=== PATIENT | male | born 1950 | race Caucasian/White ===

== ENCOUNTER → 2017-12-10 10:03 | Outpatient (CLI) | payer MEDICARE, SELFPAY ==
[2017-12-10 10:16] LABS: Basophils # 0.1 K/mm3 (0-0.2); Basophils % 1.2 % (0.1-2.0); Eosinophils # 0.3 K/mm3 (0.0-0.4); Eosinophils % 3.9 % (0.1-12.0); Hematocrit 48.2 % (42.0-52.0); Lymphocytes # 1.5 K/mm3 (0.7-4.5); Lymphocytes % 21.3 K/mm3 (10-50); Mean Corpuscular HGB Conc 33.3 g/dL (31.8-35.4); Mean Corpuscular Hemoglobin 30.7 pg (27.0-31.2); Mean Corpuscular Volume 92.2 fl (80-94); Mean Platelet Volume 8.4 fl (7.4-10.4); Monocytes # 0.4 K/mm3 (0.1-1.0); Monocytes % 5.6 % (1.7-9.3); Neutrophils # 4.8 K/mm3 (1.8-7.8); Neutrophils % 67.9 % (37.0-80.0); Platelet Count 172 K/mm3 (142-424); Red Blood Count 5.22 M/mm3 (4.60-6.20); Red Cell Distribution Width 13.5 % (11.5-17.5); White Blood Count 7.1 K/mm3 (4.8-10.8)
[2017-12-10 11:09] LABS: Alanine Aminotransferase 37 U/L (12-78); Albumin Level 3.6 gm/dL (3.4-5.0); Albumin/Globulin Ratio 1.2 (1.1-1.8); Alkaline Phosphatase 129 U/L (46-116); Anion Gap 12.3 mEq/L (5-15); Aspartate Amino Transferase 18 U/L (15-37); Bilirubin,Total 0.5 mg/dL (0.2-1.0); Blood Urea Nitrogen 15 mg/dL (7-18); Calcium 8.4 mg/dL (8.5-10.1); Carbon Dioxide 29 mmol/L (21.0-32.0); Chloride 108 mmol/L (98-107); Chol/HDL Ratio 5.1 (1-3.5); Cholesterol 241 mg/dL (140-200); Creatinine,Serum 0.95 mg/dL (0.70-1.30); Estimated Glomerular Filt Rate 79 ml/min (>60); GFR (African American) 95 ML/MIN (>60); Globulin 2.9 gm/dl (1.3-3.2); Glucose 102 mg/dL (74-106); HDL Cholesterol 47 mg/dL (27-67); LDL Cholesterol 140 mg/dL (0-130); Potassium 4.3 mmoL/L (3.5-5.1); Sodium 145 mmol/L (136-145); Thyroid Stimulating Hormone 2.51 uIU/ml (0.358-3.740); Total Protein,Serum 6.5 gm/dL (6.4-8.2); Triglycerides 268 mg/dL (30-200); VLDL Cholesterol 54 mg/dL (0-40)
== END ==
PROVIDERS: PCP Internal Medicine Adolescent Medicine; Visit Provider Internal Medicine Adolescent Medicine
DX: K31.84 Gastroparesis (principal); E78.5 Hyperlipidemia, unspecified; I51.9 Heart disease, unspecified
CPT/HCPCS: 36415; 80053; 80061; 84443; 85025

== ENCOUNTER → 2018-02-12 11:13 | Outpatient (CLI) | payer MEDICARE, SELFPAY ==
--- NOTE | 2018-02-12 11:23 | NM_ITS ---
History and Indications: Hypertension, hyperlipidemia, shortness of breath and fatigue Procedure: Patient received a 0.4 mg of Lexiscan, resting heart rate was 74 beats per resting blood pressure 149/80, with Lexiscan maximum heart rate achieved was 114 bpm which is less than 85% of the maximum predicted heart rate and a blood pressure response to 96/53. With Lexiscan patient complained of nausea and lightheadedness. Requiring intravenous Aminophyllin to reverse the symptoms. Electrocardiogram: Resting echocardiogram showed sinus rhythm, with Lexiscan there is less than 1.[address] segment depression noted from the baseline EKG. The EKG portion of the Lexiscan Myoview is nondiagnostic. Cardiac stress and resting SPECT images: Cardiac stress and rest SPECT images were obtained using technetium 99 Myoview 29.5 mCi at stress and 10.1 mCi at rest. Gated SPECT further analysis of segmental wall motion and calculation of the ejection fraction also done. Cardiac stress and rest images show uniform myocardial activity without any segmental perfusion abnormality, computer derived ejection fraction is over 65% with no obvious regional wall motion abnormality, right ventricle is normal size and contractility. Conclusion: 1. The EKG portion of the Lexiscan Myoview is nondiagnostic. 2. No obvious scintigraphic evidence of reversible ischemia seen, computer derived ejection fraction is over 65% with no obvious regional wall motion abnormality, right ventricle are normal size and contractility. 3. Normal Lexiscan Myoview study.
== END ==
PROVIDERS: Family Provider Internal Medicine Adolescent Medicine; PCP Internal Medicine Adolescent Medicine; Visit Provider Internal Medicine Adolescent Medicine
DX: I20.8 Other forms of angina pectoris (principal)
CPT/HCPCS: 78452; 93017; A9502; J2785

== ENCOUNTER → 2018-04-07 08:20 | Outpatient (CLI) | payer MEDICARE, SELFPAY ==
[2018-04-07 08:39] LABS: Basophils # 0.1 K/mm3 (0-0.2); Basophils % 0.9 % (0.1-2.0); Eosinophils # 0.2 K/mm3 (0.0-0.4); Eosinophils % 3.1 % (0.1-12.0); Hematocrit 39.4 % (42.0-52.0); Hemoglobin 15.5 g/dL (14.1-18.0); Lymphocytes # 1.6 K/mm3 (0.7-4.5); Lymphocytes % 24.5 K/mm3 (10-50); Mean Corpuscular HGB Conc 39.3 g/dL (31.8-35.4); Mean Corpuscular Hemoglobin 36.4 pg (27.0-31.2); Mean Corpuscular Volume 92.7 fl (80-94); Mean Platelet Volume 8.2 fl (7.4-10.4); Monocytes # 0.4 K/mm3 (0.1-1.0); Monocytes % 6.5 % (1.7-9.3); Neutrophils # 4.3 K/mm3 (1.8-7.8); Platelet Count 165 K/mm3 (142-424); Red Blood Count 4.25 M/mm3 (4.60-6.20); Red Cell Distribution Width 13.4 % (11.5-17.5); White Blood Count 6.7 K/mm3 (4.8-10.8)
[2018-04-07 09:54] LABS: Alanine Aminotransferase 26 U/L (12-78); Albumin Level 3.4 gm/dL (3.4-5.0); Albumin/Globulin Ratio 1.2 (1.1-1.8); Alkaline Phosphatase 111 U/L (46-116); Anion Gap 10.2 mEq/L (5-15); Aspartate Amino Transferase 16 U/L (15-37); Bilirubin,Total 0.4 mg/dL (0.2-1.0); Blood Urea Nitrogen 16 mg/dL (7-18); Calcium 8.6 mg/dL (8.5-10.1); Carbon Dioxide 27 mmol/L (21.0-32.0); Chloride 108 mmol/L (98-107); Creatinine,Serum 0.89 mg/dL (0.70-1.30); Estimated Glomerular Filt Rate 85 ml/min (>60); GFR (African American) 103 ML/MIN (>60); Globulin 2.8 gm/dl (1.3-3.2); Glucose 110 mg/dL (74-106); Potassium 4.2 mmoL/L (3.5-5.1); Sodium 141 mmol/L (136-145); Thyroid Stimulating Hormone 2.45 uIU/ml (0.358-3.740); Total Protein,Serum 6.2 gm/dL (6.4-8.2)
[2018-04-09 06:28] LABS: Vitamin B12 449 pg/mL (232-1245); Vitamin D 25 Hydroxy 35.8 ng/mL (30.0-100.0)
== END ==
PROVIDERS: Visit Provider Internal Medicine Adolescent Medicine
DX: R53.81 Other malaise (principal)
CPT/HCPCS: 36415; 80053; 82607; 82652; 84443; 85025

== ENCOUNTER → 2018-07-23 09:14 | Outpatient (CLI) | payer MEDICARE, SELFPAY ==
[2018-07-23 09:55] LABS: Basophils # 0.1 K/mm3 (0-0.2); Basophils % 1.2 % (0.1-2.0); Eosinophils # 0.2 K/mm3 (0.0-0.4); Hematocrit 46.9 % (42.0-52.0); Hemoglobin 15.4 g/dL (14.1-18.0); Lymphocytes # 1.7 K/mm3 (0.7-4.5); Lymphocytes % 24.8 K/mm3 (10-50); Mean Corpuscular HGB Conc 32.9 g/dL (31.8-35.4); Mean Corpuscular Hemoglobin 30.8 pg (27.0-31.2); Mean Corpuscular Volume 93.5 fl (80-94); Mean Platelet Volume 7.7 fl (7.4-10.4); Monocytes # 0.4 K/mm3 (0.1-1.0); Monocytes % 6.3 % (1.7-9.3); Neutrophils # 4.4 K/mm3 (1.8-7.8); Neutrophils % 64.8 % (37.0-80.0); Platelet Count 194 K/mm3 (142-424); Red Blood Count 5.02 M/mm3 (4.60-6.20); Red Cell Distribution Width 13.9 % (11.5-17.5); White Blood Count 6.8 K/mm3 (4.8-10.8)
[2018-07-23 11:12] LABS: Alanine Aminotransferase 35 U/L (12-78); Albumin Level 3.5 gm/dL (3.4-5.0); Albumin/Globulin Ratio 1.2 (1.1-1.8); Alkaline Phosphatase 134 U/L (46-116); Anion Gap 13.6 mEq/L (5-15); Aspartate Amino Transferase 10 U/L (15-37); Bilirubin,Total 0.5 mg/dL (0.2-1.0); Blood Urea Nitrogen 12 mg/dL (7-18); Calcium 8.4 mg/dL (8.5-10.1); Carbon Dioxide 25 mmol/L (21.0-32.0); Chloride 110 mmol/L (98-107); Creatinine,Serum 0.95 mg/dL (0.70-1.30); Estimated Glomerular Filt Rate 78 ml/min (>60); GFR (African American) 95 ML/MIN (>60); Glucose 108 mg/dL (74-106); Magnesium 1.9 mg/dL (1.4-2.2); Potassium 4.6 mmoL/L (3.5-5.1); Sodium 144 mmol/L (136-145); Thyroid Stimulating Hormone 2.44 uIU/ml (0.358-3.740); Total Protein,Serum 6.5 gm/dL (6.4-8.2)
== END ==
PROVIDERS: PCP Internal Medicine Adolescent Medicine; Visit Provider Internal Medicine Adolescent Medicine
DX: I51.9 Heart disease, unspecified (principal); I51.7 Cardiomegaly
CPT/HCPCS: 36415; 80053; 83735; 84443; 85025

== ENCOUNTER 2018-08-25 10:28 | Outpatient (RCR) | payer MEDICARE, SELFPAY | END 2018-11-12 16:40 | disposition home or self-care (01) | LOC: PT 10:28 | PROVIDERS: Visit Provider Internal Medicine | DX: I25.10 Atherosclerotic heart disease of native coronary artery without angina pectoris (principal) | CPT/HCPCS: 93798 ==

== ENCOUNTER → 2018-09-15 08:20 | Outpatient (CLI) | payer MEDICARE, SELFPAY ==
[2018-09-15 09:33] LABS: Alanine Aminotransferase 29 U/L (12-78); Albumin Level 3.5 gm/dL (3.4-5.0); Alkaline Phosphatase 153 U/L (46-116); Anion Gap 12.4 mEq/L (5-15); Aspartate Amino Transferase 14 U/L (15-37); Bilirubin,Direct 0.2 mg/dL (0.0-0.2); Bilirubin,Indirect 0.3 mg/dL (0.0-0.9); Bilirubin,Total 0.5 mg/dL (0.2-1.0); Blood Urea Nitrogen 19 mg/dL (7-18); Calcium 8.5 mg/dL (8.5-10.1); Carbon Dioxide 29 mmol/L (21.0-32.0); Chloride 107 mmol/L (98-107); Chol/HDL Ratio 3.7 (1-3.5); Cholesterol 161 mg/dL (140-200); Creatinine,Serum 0.96 mg/dL (0.70-1.30); Estimated Glomerular Filt Rate 77 ml/min (>60); GFR (African American) 94 ML/MIN (>60); Glucose 107 mg/dL (74-106); HDL Cholesterol 43 mg/dL (27-67); LDL Cholesterol 87 mg/dL (0-130); Potassium 4.4 mmoL/L (3.5-5.1); Sodium 144 mmol/L (136-145); Total Protein,Serum 6.7 gm/dL (6.4-8.2); Triglycerides 153 mg/dL (30-200); VLDL Cholesterol 31 mg/dL (0-40)
== END ==
PROVIDERS: Visit Provider Internal Medicine Cardiovascular Disease
DX: E78.2 Mixed hyperlipidemia (principal); H93.13 Tinnitus, bilateral; I11.9 Hypertensive heart disease without heart failure; I25.118 Atherosclerotic heart disease of native coronary artery with other forms of angina pectoris; R06.09 Other forms of dyspnea; Z87.891 Personal history of nicotine dependence; Z79.899 Other long term (current) drug therapy
CPT/HCPCS: 36415; 80048; 80061; 80076

== ENCOUNTER → 2018-11-26 10:40 | Outpatient (CLI) | payer MEDICARE, SELFPAY ==
[2018-11-26 13:36] LABS: Anion Gap 14.1 mEq/L (5-15); Blood Urea Nitrogen 17 mg/dL (7-18); Calcium 9.3 mg/dL (8.5-10.1); Carbon Dioxide 27 mmol/L (21.0-32.0); Chloride 105 mmol/L (98-107); Creatinine,Serum 1.03 mg/dL (0.70-1.30); Estimated Glomerular Filt Rate 71 ml/min (>60); GFR (African American) 86 ML/MIN (>60); Glucose 123 mg/dL (74-106); Potassium 4.1 mmoL/L (3.5-5.1); Sodium 142 mmol/L (136-145); Thyroid Stimulating Hormone 2.59 uIU/ml (0.358-3.740)
== END ==
PROVIDERS: Visit Provider Internal Medicine Cardiovascular Disease
DX: E78.2 Mixed hyperlipidemia (principal); I11.9 Hypertensive heart disease without heart failure; I25.118 Atherosclerotic heart disease of native coronary artery with other forms of angina pectoris; R06.09 Other forms of dyspnea; T73 Effects of other deprivation; Z87.891 Personal history of nicotine dependence; Z95.5 Presence of coronary angioplasty implant and graft
CPT/HCPCS: 36415; 80048; 83880; 84439; 84443

== ENCOUNTER → 2018-12-04 07:01 | Outpatient (CLI) | payer MEDICARE, SELFPAY ==
--- NOTE | 2018-12-04 07:04 | NM_ITS ---
History and Indications: Coronary artery disease, hypertension, hyperlipidemia, shortness of breath, palpitations and fatigue Procedure: Patient received 0.4 mg of intravenous Lexiscan, resting heart rate was 73 bpm resting blood pressure 160/82, with Lexiscan maximum heart rate achieved was 106 bpm which is less than 85% of the maximum predicted heart rate and blood pressure was 106/59. With Lexiscan patient complained of chest pain or shortness of breath. Electrocardiogram: Resting electrocardiogram showed sinus rhythm, with Lexiscan there is less than 1.[address] segment depression. The EKG portion of the Lexiscan Myoview is nondiagnostic. Cardiac stress and resting SPECT images: Cardiac stress and rest SPECT images were obtained using technetium 99 Myoview 31.4 mCi stress and 10.5 mCi at rest. Gated SPECT further analysis of segmental wall motion and calculation of ejection fraction also done. Cardiac stress and rest SPECT images show decreased tracer activity in the inferolateral wall which improves on the resting images suggestive of reversible ischemia. Computer derived ejection fraction is over 65% with no regional wall motion abnormality. Right ventricle is normal size and contractility. Conclusion: 1. The EKG portion of the Lexiscan Myoview is nondiagnostic. 2. Scintigraphic evidence of mild reversible ischemia involving the inferolateral wall, computer derived ejection fraction is over 65% with regional wall motion abnormality, right ventricle is normal size and contractility. 3. Abnormal Lexiscan Myoview study.
--- NOTE | 2018-12-04 10:06 | HMH.ITSHM ---
Current Home Medications as stated by this patient Umer Trent or sales representative health insurance. []ASPIRN METOPROLOL OMEPRAZOLE ATORVASTATIN TAMSULOSIN DOXYCYCLINE FUROSEMIDE CLOPIDOGREL
== END ==
PROVIDERS: PCP Internal Medicine Adolescent Medicine; Visit Provider Internal Medicine Cardiovascular Disease
DX: E78.2 Mixed hyperlipidemia (principal); I11.9 Hypertensive heart disease without heart failure; I25.118 Atherosclerotic heart disease of native coronary artery with other forms of angina pectoris; R06.09 Other forms of dyspnea; T73 Effects of other deprivation; Z87.891 Personal history of nicotine dependence; Z95.5 Presence of coronary angioplasty implant and graft
CPT/HCPCS: 78452; 93017; A9502; J2785

== ENCOUNTER → 2018-12-18 12:01 | Outpatient (CLI) | payer MEDICARE, SELFPAY ==
[2018-12-18 14:07] LABS: Anion Gap 15.9 mEq/L (5-15); Blood Urea Nitrogen 24 mg/dL (7-18); Calcium 9.1 mg/dL (8.5-10.1); Carbon Dioxide 25 mmol/L (21.0-32.0); Chloride 104 mmol/L (98-107); Creatinine,Serum 1.34 mg/dL (0.70-1.30); Estimated Glomerular Filt Rate 53 ml/min (>60); GFR (African American) 64 ML/MIN (>60); Glucose 139 mg/dL (74-106); Potassium 3.9 mmoL/L (3.5-5.1); Sodium 141 mmol/L (136-145)
== END ==
PROVIDERS: Visit Provider Internal Medicine Cardiovascular Disease
DX: E78.5 Hyperlipidemia, unspecified (principal); I11.9 Hypertensive heart disease without heart failure; I25.10 Atherosclerotic heart disease of native coronary artery without angina pectoris; R00.2 Palpitations; R06.09 Other forms of dyspnea; R07.89 Other chest pain; R53.83 Other fatigue; R94.39 Abnormal result of other cardiovascular function study; Z87.891 Personal history of nicotine dependence; Z95.5 Presence of coronary angioplasty implant and graft
CPT/HCPCS: 36415; 80048

== ENCOUNTER → 2019-01-26 14:00 | Outpatient (CLI) | payer MEDICARE, SELFPAY ==
--- NOTE | 2019-01-26 14:01 | CI_ITS ---
Cerebrovascular Exam Indications: 785.9 Bruit. IMPRESSIONS 1. The bilateral vertebral arteries are patent with normal antegrade flow. 2. Study suggests less than 20% stenosis involving the right internal carotid artery and the left internal carotid artery. History: Coronary artery disease. Risk factors: Hypertension. Hyperlipidemia. Carotid duplex study. Complete study and Doppler flow study including spectral analysis, color and dodge scale imaging. Location: Vascular laboratory. Patient status: Outpatient. Tables: Arterial flow: + +--------+--------+ Location V sys V ed + +--------+--------+ Right CCA - proximal 103cm/s 16.5cm/s + +--------+--------+ Right CCA - distal 71.5cm/s 14.1cm/s + +--------+--------+ Right ECA 125cm/s -------- + +--------+--------+ Right ICA - proximal 78.6cm/s 24.4cm/s + +--------+--------+ Right ICA - mid 86.4cm/s 26.7cm/s + +--------+--------+ Right ICA - distal 99.8cm/s 31.4cm/s + +--------+--------+ Right vertebral 39.3cm/s -------- + +--------+--------+ Left CCA - proximal 81.7cm/s 14.9cm/s + +--------+--------+ Left CCA - distal 77.8cm/s 22cm/s + +--------+--------+ Left ECA 102cm/s -------- + +--------+--------+ Left ICA - proximal 81.7cm/s 20.4cm/s + +--------+--------+ Left ICA - mid 99.8cm/s 33cm/s + +--------+--------+ Left ICA - distal 102cm/s 34.6cm/s + +--------+--------+ Left vertebral 41.6cm/s -------- + +--------+--------+ Velocity ratios: + + + + + + Right, V sys Right, V ed Left, V sys Left, V ed + + + + + + Max ICA/dist CCA 1.4 2.23 1.31 1.57 + + + + + + (Report amended ) Electronically signed by: Trino Toscano [id number]
== END ==
PROVIDERS: PCP Internal Medicine Adolescent Medicine; Visit Provider Internal Medicine Cardiovascular Disease
DX: R09.89 Other specified symptoms and signs involving the circulatory and respiratory systems; E78.5 Hyperlipidemia, unspecified; H93.19 Tinnitus, unspecified ear; I11.9 Hypertensive heart disease without heart failure; I25.10 Atherosclerotic heart disease of native coronary artery without angina pectoris; R53.83 Other fatigue; Z87.891 Personal history of nicotine dependence; Z95.5 Presence of coronary angioplasty implant and graft
CPT/HCPCS: 93880

== ENCOUNTER → 2019-04-05 15:52 | Outpatient (CLI) | payer MEDICARE, SELFPAY ==
--- NOTE | 2019-04-07 14:23 | PC.NURSE ---
PATIENT REGISTERED FOR HOME SLEEP TEST - BROUGHT EQUIPMENT BACK ON 04/06/19 AND STATED HE COULD NOT COMPLETE TEST - MADE HIS HEAD HURT. NO CHARGE FOR TEST.
== END ==
PROVIDERS: PCP Internal Medicine Adolescent Medicine; Visit Provider Internal Medicine Cardiovascular Disease
DX: G47.9 Sleep disorder, unspecified (principal); R40.0 Somnolence

== ENCOUNTER → 2019-04-06 12:31 | Outpatient (CLI) | payer MEDICARE, SELFPAY | PROVIDERS: Visit Provider Urology | DX: Z12.5 Encounter for screening for malignant neoplasm of prostate (principal) | CPT/HCPCS: 36415; G0103 ==

== ENCOUNTER → 2019-04-24 08:20 | Outpatient (CLI) | payer MEDICARE, SELFPAY ==
[2019-04-24 09:18] LABS: Basophils # 0.1 K/mm3 (0-0.2); Basophils % 0.8 % (0.1-2.0); Eosinophils # 0.2 K/mm3 (0.0-0.4); Eosinophils % 2.5 % (0.1-12.0); Hematocrit 44.7 % (42.0-52.0); Hemoglobin 14.3 g/dL (14.1-18.0); Lymphocytes # 1.4 K/mm3 (0.7-4.5); Lymphocytes % 19.4 % (10-50); Mean Corpuscular HGB Conc 31.9 g/dL (31.8-35.4); Mean Corpuscular Hemoglobin 29.3 pg (27.0-31.2); Mean Corpuscular Volume 91.8 fl (80-94); Monocytes # 0.5 K/mm3 (0.1-1.0); Monocytes % 6.8 % (1.7-9.3); Neutrophils # 4.9 K/mm3 (1.8-7.8); Neutrophils % 70.5 % (37.0-80.0); Platelet Count 200 K/mm3 (142-424); Red Blood Count 4.87 M/mm3 (4.60-6.20); White Blood Count 6.9 K/mm3 (4.8-10.8)
[2019-04-24 09:57] LABS: Hemoglobin A1C 5.9 % (0.0-7.0)
[2019-04-24 10:51] LABS: Alanine Aminotransferase 29 U/L (12-78); Albumin Level 3.1 gm/dL (3.4-5.0); Albumin/Globulin Ratio 1.1 (1.1-1.8); Alkaline Phosphatase 160 U/L (46-116); Anion Gap 13.2 mEq/L (5-15); Aspartate Amino Transferase 16 U/L (15-37); Bilirubin,Total 0.5 mg/dL (0.2-1.0); Blood Urea Nitrogen 14 mg/dL (7-18); Calcium 8.1 mg/dL (8.5-10.1); Carbon Dioxide 27 mmol/L (21.0-32.0); Chloride 108 mmol/L (98-107); Creatinine,Serum 0.98 mg/dL (0.70-1.30); Estimated Glomerular Filt Rate 76 ml/min (>60); Free Thyroxine Index 2.7 ug/dL (5.93-13.13); GFR (African American) 91 ML/MIN (>60); Globulin 2.8 gm/dl (1.3-3.2); Glucose 92 mg/dL (74-106); Potassium 4.2 mmoL/L (3.5-5.1); Sodium 144 mmol/L (136-145); T4 (Thyroxine) 9.1 ug/dl (4.7-13.3); Thyroid Stimulating Hormone 2.23 uIU/ml (0.358-3.740); Total Protein,Serum 5.9 gm/dL (6.4-8.2); Triiodothryronine (T3) Uptake 30 % (31-39)
[2019-04-25 21:44] LABS: Rapid Plasma Reagin Ab Titer Non Reactive (NonRea<1:1); Vitamin B12 381 pg/mL (232-1245); Vitamin D 25 Hydroxy 26.4 ng/mL (30.0-100.0)
[2019-04-27 23:09] LABS: Methylmalonic Acid 252 nmol/L (0-378)
== END ==
PROVIDERS: Visit Provider Internal Medicine Adolescent Medicine
DX: G60.3 Idiopathic progressive neuropathy (principal); E55.9 Vitamin D deficiency, unspecified; E03.9 Hypothyroidism, unspecified; Z79.899 Other long term (current) drug therapy
CPT/HCPCS: 36415; 80053; 82131; 82607; 82652; 83036; 84436; 84443; 84479; 85025; 86592

== ENCOUNTER → 2019-06-21 20:16 | Outpatient (CLI) | payer MEDICARE, SELFPAY | PROVIDERS: PCP Internal Medicine Adolescent Medicine; Visit Provider Internal Medicine Cardiovascular Disease | DX: G47.33 Obstructive sleep apnea (adult) (pediatric) (principal); I10 Essential (primary) hypertension; R40.0 Somnolence | CPT/HCPCS: 95810 ==

== ENCOUNTER → 2019-08-02 13:29 | Outpatient (CLI) | payer MEDICARE, SELFPAY ==
--- NOTE | 2019-08-02 13:30 | CA_ITS ---
APPROVED REPORT EXAM: Comprehensive 2D, Doppler, and color-flow Echocardiogram Legal Consultant: Ruby Naidu CRT Ht: 6 ft 1 in Wt: 211lbs BSA: 2.20 BP: 148/83 mmHg Indications: Shortness of Breath, CAD, Hypertension/HDD 2D Dimensions LVOT 2.00 cm (M/F) 1.5-2.5 M-Mode Dimensions RVDd 2.90 cm (0.9-2.6) LA Diam 2.90 cm (1.9-4.0) LVDd 4.70 cm (3.5-5.7) Ao Diam 3.90 cm (2.0-3.7) LVDs 2.50 cm (3.5-5.7) AV Cusp 2.10 cm (1.5-2.6) IVSd 1.30 cm (0.6-1.1) PWd 1.10 cm (0.6-1.1) EF (Teich) 78.10% FS 46.80% EDV (Teich) 102.00 mL ESV (Teich) 22.30 mL LV Diastology E/A Ratio 1.00 MED E' 4.87 (< 7 cm/sec) E'/MED E' Ratio 17.20 (>14) LAT E' 7.02 (<10 cm/sec) E/LAT E' Ratio 12.00 (>14) Aortic Valve AoV Peak William. 86.30 (50-130 cm/s) AI PHT 420.00 ms AO Peak GR. 3.00 mmHg Mitral Valve MV E Max William. 83.90 (40-130 cm/s) MV A Velocity 85.40 (40-130 cm/s) E/A Ratio 1.00 Pulmonary Valve DC End VMAX 133.00 cm/s PA Accel Time 123.00 (>120 msec) Tricuspid Valve TR P. Velocity 311.00 cm/s RAP Estimate 10.00 mmHg RVSP 49.00 mmHg Left Ventricle Left atrium is mildly enlarged, left ventricle is normal size, mild concentric left ventricular hypertrophy, visually estimated ejection fraction 55% with no regional wall motion abnormality, endocardial surfaces are poorly visualized, grade 1 diastolic dysfunction seen with tissue Doppler evidence of raise left atrial pressure. Right Ventricle Right atrium and right ventricular mildly enlarged with normal contractility. Aortic Valve Aortic valve is thickened and calcified leaflet continue to display good mobility, there is no aortic stenosis, there is mild aortic insufficiency. Mitral Valve Mitral valve leaflets are minimally thickened, there is no mitral stenosis, there is mild mitral regurgitation. Tricuspid Valve Tricuspid valve is grossly normal, there is mild tricuspid regurgitation. Tricuspid regurgitation jet velocity is inadequate for calculation of the right ventricular systolic pressure. Pulmonic Valve Pulmonic valve is poorly visualized. Great Vessels Aortic root is normal size. Pericardium No significant pericardial effusion noted. Conclusion 1. Mild biatrial enlargement, normal left ventricular size, mild concentric left ventricular hypertrophy, visually estimated ejection fraction 55% with no regional wall motion abnormality, grade 1 diastolic dysfunction seen with tissue Doppler evidence of raise left atrial pressure. 2. Mildly enlarged right ventricle with normal contractility. 3. Mild aortic, mild mitral and tricuspid regurgitation. 4. No significant pericardial effusion noted. Electronically signed by : Sampson Clements, 08/05/2019 16:33:21
== END ==
PROVIDERS: PCP Internal Medicine Adolescent Medicine; Visit Provider Internal Medicine Cardiovascular Disease
DX: R60.0 Localized edema; E78.2 Mixed hyperlipidemia; I11.9 Hypertensive heart disease without heart failure; I25.118 Atherosclerotic heart disease of native coronary artery with other forms of angina pectoris; I65.29 Occlusion and stenosis of unspecified carotid artery; R06.09 Other forms of dyspnea; R09.89 Other specified symptoms and signs involving the circulatory and respiratory systems; T73 Effects of other deprivation; Z87.891 Personal history of nicotine dependence; Z95.5 Presence of coronary angioplasty implant and graft
CPT/HCPCS: 93306

== ENCOUNTER → 2019-08-06 10:52 | Outpatient (CLI) | payer MEDICARE, SELFPAY ==
[2019-08-06 14:00] LABS: Anion Gap 11.1 mEq/L (5-15); Blood Urea Nitrogen 15 mg/dL (7-18); Calcium 8.7 mg/dL (8.5-10.1); Carbon Dioxide 30 mmol/L (21.0-32.0); Chloride 106 mmol/L (98-107); Creatinine,Serum 1.16 mg/dL (0.70-1.30); Estimated Glomerular Filt Rate 62 ml/min (>60); GFR (African American) 75 ML/MIN (>60); Glucose 138 mg/dL (74-106); Potassium 4.1 mmoL/L (3.5-5.1); Sodium 143 mmol/L (136-145)
== END ==
PROVIDERS: Visit Provider Internal Medicine Cardiovascular Disease
DX: E78.2 Mixed hyperlipidemia (principal); I11.9 Hypertensive heart disease without heart failure; I25.118 Atherosclerotic heart disease of native coronary artery with other forms of angina pectoris; I65.29 Occlusion and stenosis of unspecified carotid artery; R06.09 Other forms of dyspnea; R09.89 Other specified symptoms and signs involving the circulatory and respiratory systems; R60.0 Localized edema; T73 Effects of other deprivation; Z87.891 Personal history of nicotine dependence; Z95.5 Presence of coronary angioplasty implant and graft
CPT/HCPCS: 36415; 80048; 83880

== ENCOUNTER → 2019-08-09 09:43 | Outpatient (CLI) | payer MEDICARE, SELFPAY ==
[2019-08-09 10:18] LABS: Basophils # 0.1 K/mm3 (0-0.2); Basophils % 0.9 % (0.1-2.0); Eosinophils # 0.1 K/mm3 (0.0-0.4); Hematocrit 47.1 % (42.0-52.0); Hemoglobin 14.8 g/dL (14.1-18.0); Lymphocytes % 14.1 % (10-50); Mean Corpuscular HGB Conc 31.4 g/dL (31.8-35.4); Mean Corpuscular Hemoglobin 30.4 pg (27.0-31.2); Mean Corpuscular Volume 96.9 fl (80-94); Mean Platelet Volume 8.2 fl (7.4-10.4); Monocytes # 0.4 K/mm3 (0.1-1.0); Monocytes % 5.8 % (1.7-9.3); Neutrophils # 5.5 K/mm3 (1.8-7.8); Neutrophils % 77.2 % (37.0-80.0); Platelet Count 201 K/mm3 (142-424); Red Blood Count 4.86 M/mm3 (4.60-6.20); Red Cell Distribution Width 15.3 % (11.5-17.5); White Blood Count 7.2 K/mm3 (4.8-10.8)
[2019-08-09 11:32] LABS: Hemoglobin A1C 5.6 % (0.0-7.0)
[2019-08-09 12:15] LABS: Alanine Aminotransferase 27 U/L (12-78); Albumin Level 3.5 gm/dL (3.4-5.0); Albumin/Globulin Ratio 1.1 (1.1-1.8); Alkaline Phosphatase 168 U/L (46-116); Anion Gap 12.4 mEq/L (5-15); Aspartate Amino Transferase 17 U/L (15-37); Bilirubin,Total 0.5 mg/dL (0.2-1.0); Blood Urea Nitrogen 14 mg/dL (7-18); Calcium 8.6 mg/dL (8.5-10.1); Carbon Dioxide 30 mmol/L (21.0-32.0); Chloride 107 mmol/L (98-107); Chol/HDL Ratio 3.4 (1-3.5); Cholesterol 165 mg/dL (140-200); Creatinine,Serum 1.02 mg/dL (0.70-1.30); Estimated Glomerular Filt Rate 72 ml/min (>60); Free Thyroxine Index 2.6 ug/dL (5.93-13.13); GFR (African American) 87 ML/MIN (>60); Globulin 3.1 gm/dl (1.3-3.2); Glucose 127 mg/dL (74-106); HDL Cholesterol 49 mg/dL (27-67); LDL Cholesterol 86 mg/dL (0-130); Potassium 4.4 mmoL/L (3.5-5.1); Sodium 145 mmol/L (136-145); T4 (Thyroxine) 9.4 ug/dl (4.7-13.3); Thyroid Stimulating Hormone 2.34 uIU/ml (0.358-3.740); Total Protein,Serum 6.6 gm/dL (6.4-8.2); Triglycerides 150 mg/dL (30-200); Triiodothryronine (T3) Uptake 28 % (31-39); VLDL Cholesterol 30 mg/dL (0-40)
[2019-08-10 07:17] LABS: Vitamin B12 658 pg/mL (232-1245)
== END ==
PROVIDERS: Visit Provider Internal Medicine Adolescent Medicine
DX: E78.5 Hyperlipidemia, unspecified (principal); I50.20 Unspecified systolic (congestive) heart failure; G60.3 Idiopathic progressive neuropathy
CPT/HCPCS: 36415; 80053; 80061; 82607; 82652; 83036; 84436; 84443; 84479; 85025

== ENCOUNTER → 2019-08-19 08:48 | Outpatient (CLI) | payer MEDICARE, SELFPAY ==
--- NOTE | 2019-08-19 08:54 | CA_ITS ---
APPROVED REPORT Transport Manager: Irish Urbina RVT Study Quality: Good Indications: malignant htn Risk Factors Hypertension Hyperlipidemia Renal Artery Doppler Origin (R) 154.0/ cm/sec Proximal (R) 139.0/ cm/sec Mid (R) 101.9/ cm/sec Distal (R) 115.6/ cm/sec Renal Aorta Ratio (R) 0.92 Segmental A. (R) / cm/sec RI: 0.75 Segmental A. Sup (R) 29.3/7.3 cm/sec Segmental A. Mid (R) 35.9/9.4 cm/sec Segmental A. Inf (R) 28.6/7.8 cm/sec Origin (L) 126.2/ cm/sec Proximal (L) 88.6/ cm/sec Mid (L) 60.8/ cm/sec Distal (L) 86.0/ cm/sec Renal Aorta Ratio (L) 0.75 Segmental A. (L) / cm/sec RI: 0.75 Segmental A. Sup (L) 55.1/13.8 cm/sec Segmental A. Mid (L) 51.3/14.4 cm/sec Segmental A. Inf (L) 44.2/11.8 cm/sec Renal Measurements Kidney Size (R) 11.3x7.6 cm Cortical Thickness (R) 1.3 cm Kidney Size (L) 11.8x6.0 cm Cortical Thickness (L) 1.7 cm Findings Normal bilateral renal artery ultrasound. 1.5 cm cyst seen upper pole left kidney. Conclusion Normal bilateral renal artery ultrasound. 1.5 cm cyst seen upper pole left kidney. Electronically signed by : Trino Toscano MD 08/19/2019 19:11:35
== END ==
PROVIDERS: PCP Internal Medicine Adolescent Medicine; Visit Provider Nurse Practitioner Family
DX: I10 Essential (primary) hypertension (principal)
CPT/HCPCS: 93976

== ENCOUNTER → 2019-08-25 12:49 | Outpatient (CLI) | payer MEDICARE, SELFPAY ==
--- NOTE | 2019-08-25 12:52 | US_ITS ---
APPROVED REPORT Exam Type: Ankle to Brachial Index Farmworker Poultry: Ruby Naidu CRT Indications Claudication: Bilaterally Rest Pain: Bilaterally Risk Factors CAD Hyperlipidemia Pressures/Indices Right Indices Left Indices Brachial 153.00 mmHg Brachial 151.00 mmHg Low Thigh 182.00 mmHg 1.19 Low Thigh 186.00 mmHg 1.22 Calf 186.00 mmHg 1.22 Calf 196.00 mmHg 1.28 Ankle(PT) 202.00 mmHg 1.32 Ankle(PT) 195.00 mmHg 1.27 Ankle(DP) 174.00 mmHg 1.14 Ankle(DP) 180.00 mmHg 1.18 Digit 105.00 mmHg 0.69 Digit 124.00 mmHg 0.81 Conclusion RT KATHERINE=1.3 LT KATHERINE=1.3 RT TBI=0.7 LT TBI=0.9 Normal pulses Normal waveforms Normal appearing resting noninvasive lower extremity arterial study. Electronically signed by : Trino Toscano MD 08/27/2019 17:34:18
== END ==
PROVIDERS: PCP Internal Medicine Adolescent Medicine; Visit Provider Nurse Practitioner Family
DX: I70.213 Atherosclerosis of native arteries of extremities with intermittent claudication, bilateral legs (principal)
CPT/HCPCS: 93923

== ENCOUNTER → 2019-11-23 14:25 | Outpatient (CLI) | payer MEDICARE, SELFPAY ==
[2019-11-23 15:38] LABS: Anion Gap 15.4 mEq/L (5-15); Blood Urea Nitrogen 15 mg/dL (7-18); Calcium 8.4 mg/dL (8.5-10.1); Carbon Dioxide 26 mmol/L (21.0-32.0); Chloride 107 mmol/L (98-107); Creatinine,Serum 1.08 mg/dL (0.70-1.30); Estimated Glomerular Filt Rate 67 ml/min (>60); GFR (African American) 82 ML/MIN (>60); Glucose 76 mg/dL (74-106); Potassium 4.4 mmoL/L (3.5-5.1); Sodium 144 mmol/L (136-145)
== END ==
PROVIDERS: PCP Internal Medicine Adolescent Medicine; Visit Provider Nurse Practitioner Family
DX: I11.9 Hypertensive heart disease without heart failure (principal); I25.10 Atherosclerotic heart disease of native coronary artery without angina pectoris; R60.9 Edema, unspecified
CPT/HCPCS: 36415; 80048

== ENCOUNTER → 2020-03-24 11:09 | Outpatient (CLI) | payer MEDICARE, SELFPAY ==
[2020-03-24 12:03] LABS: Chloride 103 mmol/L (98-107); Potassium 4.1 mmoL/L (3.5-5.1); Sodium 137 mmol/L (136-145)
[2020-03-24 12:05] LABS: Blood Urea Nitrogen 16 mg/dl (9-20); Estimated Glomerular Filt Rate 83 ml/min (>60); GFR (African American) 101 ML/MIN (>60)
[2020-03-24 12:06] LABS: Anion Gap 11.1 mEq/L (5-15); Calcium 9.2 mg/dl (8.4-10.2); Carbon Dioxide 27 mmol/L (22.0-30.0); Creatine Kinase 41 U/L (55-170); Glucose 213 mg/dl (74-100)
[2020-03-24 12:15] LABS: CKMB Relative Index 0.7 U/L (0-4.0); Creatine Kinase MB 0.3 ng/ml (0.0-2.03)
[2020-03-24 12:20] LABS: Troponin I < 0.01 ng/ml (0.00-0.034)
[2020-03-24 12:24] LABS: Basophils # 0.1 K/mm3 (0-0.2); Basophils % 0.7 % (0.1-2.0); Eosinophils # 0.1 K/mm3 (0.0-0.4); Eosinophils % 0.5 % (0.1-12.0); Hematocrit 45.2 % (42.0-52.0); Hemoglobin 14.5 g/dL (14.1-18.0); Lymphocytes # 1.1 K/mm3 (0.7-4.5); Lymphocytes % 11.3 % (10-50); Mean Corpuscular HGB Conc 32.1 g/dL (31.8-35.4); Mean Corpuscular Hemoglobin 31.1 pg (27.0-31.2); Mean Corpuscular Volume 96.8 fl (80-94); Mean Platelet Volume 8.3 fl (7.4-10.4); Monocytes # 0.4 K/mm3 (0.1-1.0); Monocytes % 4.2 % (1.7-9.3); Neutrophils # 8.3 K/mm3 (1.8-7.8); Neutrophils % 83.3 % (37.0-80.0); Platelet Count 209 K/mm3 (142-424); Red Blood Count 4.67 M/mm3 (4.60-6.20); Red Cell Distribution Width 14.2 % (11.5-17.5); White Blood Count 9.9 K/mm3 (4.8-10.8)
[2020-03-24 12:37] LABS: Thyroid Stimulating Hormone 1.63 uIU/mL (0.465-4.68)
== END ==
PROVIDERS: Visit Provider Internal Medicine Adolescent Medicine
DX: M79.602 Pain in left arm (principal); M54.2 Cervicalgia; Z79.899 Other long term (current) drug therapy
CPT/HCPCS: 36415; 80048; 82550; 82553; 84443; 84484; 85025

== ENCOUNTER → 2020-03-29 08:13 | Outpatient (CLI) | payer MEDICARE, SELFPAY ==
[2020-03-29 09:48] LABS: Hemoglobin A1C 5.3 % (4.0-6.0)
[2020-03-29 09:53] LABS: Chloride 104 mmol/L (98-107); Potassium 4.3 mmoL/L (3.5-5.1); Sodium 138 mmol/L (136-145)
[2020-03-29 09:56] LABS: Anion Gap 11.3 mEq/L (5-15); Blood Urea Nitrogen 15 mg/dl (9-20); Carbon Dioxide 27 mmol/L (22.0-30.0); Estimated Glomerular Filt Rate 83 ml/min (>60); GFR (African American) 101 ML/MIN (>60)
[2020-03-29 09:57] LABS: Glucose 99 mg/dl (74-100)
== END ==
PROVIDERS: Visit Provider Internal Medicine Adolescent Medicine
DX: R73.09 Other abnormal glucose (principal)
CPT/HCPCS: 36415; 80048; 83036

== ENCOUNTER → 2020-04-06 06:17 | Outpatient (CLI) | payer MEDICARE, SELFPAY ==
--- NOTE | 2020-04-06 06:18 | CA_ITS ---
APPROVED REPORT Exam: Pharmacologic Technologist: Lenore Lim, Ht: 6 ft 0 in Wt: 210 lbs BSA: 2.18 m2 Indications: SOA Medical History Medical History: HTN, Hyperlipidemia Medications: Furosemide (LASIX),,,,, Aspirin,,,,, Metoprolol,,,,, Gabapentin,,,,, Losartan,,,,, Atorvastatin,,,,, Buspirone,,,,, Ropinirole,,,,, TAMSULOSIN,,,,, CloPIdogrel,,,,, FluTICASONE,,,,, SpirOnolactone,,,,, Cardiac Risk Factors: HTN, Hyperlipidemia Stress Test Details Test: LEXISCAN Reason for pharmacologic stress test: physical limitation. Reversal agent Aminophyline 100.0 mg, given intravenously for . HR Resting HR: 60 bpm Max Heart Rate (APMHR): 149 bpm Max HR Achieved: 97 bpm Target HR (85% APMHR): 126 bpm % of APMHR: 65 BP Resting BP: 152/60 mmHg Max BP: 167/76 mmHg ECG Clinical Exercise duration: 04:49 min Highest Stage Achieved: Exercise capacity: 1.0 METs Stress ECG Conclusion positive for SOA, Malaise, stomach cramps Aminophylline 100mg slow IV given resulting in resolved symptoms negative for arrhythmias, ST changes unremarkable Lexiscan stress / images reported separately Electronically signed by : Sampson Clements, 04/06/2020 10:45:01
--- NOTE | 2020-04-06 06:18 | NM_ITS ---
APPROVED REPORT Exam: Nuclear Stress Test Indication: short of breath..palpitations..fatigue Patient Location: Outpatient Stress Tech: Lenore Lim VT Tech:Jessica Lozoya KIKAEleanor RT(R)(N) Ht: 6 ft 0 in Wt: 210 lbs HR: 51 bpm BP: 152/60 mmHg BSA: 2.18 m2 History: short of breath..palpitations..fatigue Procedure: Patient received a 0.4 mg of intravenous Lexiscan, resting heart rate 51 bpm, resting blood pressure 152/60 mmHg, with Lexiscan maximum heart rate achived was 97 bpm which is Less than 85 % of the maximum predicted heart rate and blood pressure was 167/76 mmHg. With Lexiscan, patient denied any complaint of chest pain. Electrocardiogram Resting electrocardiogram showed sinus rhythm, with Lexiscan there is less than 1.[address] segment depression noted from the baseline EKG. The EKG portion of the Lexiscan Myoview is nondiagnostic. Cardiac Stress and Resting SPECT Images: Cardiac Stress and Resting SPECT images were obtained using technetium 99m Myoview 32.3 mCi stress and 10.07 mCi at rest. Gated SPECT for analysis of segmental wall motion and calculation of the ejection fraction also done. Cardiac stress and rest SPECT images show reversible ischemia involving the apex, anterolateral and lateral wall, computer derived ejection fraction is 65% with mild posterolateral wall hypokinesis. Right ventricle is normal size and contractility. Conclusion: 1. The EKG portion of the Lexiscan Myoview is nondiagnostic. 2. Scintigraphic evidence of mild reversible ischemia involving the apical wall anterolateral and lateral wall. Computer derived ejection fraction is 65% with segmental wall motion abnormality described above, right ventricle is normal size and contractility. 3. Abnormal Lexiscan Myoview study. Electronically signed by : Sampson Clements, 04/06/2020 10:48:24
--- NOTE | 2020-04-06 08:11 | HMH.ITSHM ---
Current Home Medications as stated by this patient Umer Trent or enrollment eligibility representative. [] metoprolol losartan busirone spironolactone atorvastatin clopidogrel furosemide asp mirtazapine
== END ==
LOC: RAD 06:18
PROVIDERS: PCP Internal Medicine Adolescent Medicine; Visit Provider Urology
DX: E78.2 Mixed hyperlipidemia (principal); I11.9 Hypertensive heart disease without heart failure; I25.10 Atherosclerotic heart disease of native coronary artery without angina pectoris; I65.23 Occlusion and stenosis of bilateral carotid arteries; R06.00 Dyspnea, unspecified; Z95.5 Presence of coronary angioplasty implant and graft; M54.2 Cervicalgia; R20.0 Anesthesia of skin
CPT/HCPCS: 78452; 93017; A9502; J2785

== ENCOUNTER 2020-04-19 08:29 | Day surgery (SDC) | payer MEDICARE, SELFPAY ==
[2020-04-19] VITALS (20 sets, daily range): BP systolic 103–179; BP diastolic 53–85; PULSE 57–81; RESP 15–16; TEMP 36.4; O2SAT 90–96; BMI 27.9
[2020-04-19 09:13] LABS: Basophils # 0.1 K/mm3 (0-0.2); Basophils % 0.9 % (0.1-2.0); Eosinophils # 0.2 K/mm3 (0.0-0.4); Eosinophils % 2.3 % (0.1-12.0); Hematocrit 45.2 % (42.0-52.0); Hemoglobin 15.3 g/dL (14.1-18.0); Lymphocytes # 1.5 K/mm3 (0.7-4.5); Lymphocytes % 17.8 % (10-50); Mean Corpuscular Hemoglobin 32.6 pg (27.0-31.2); Mean Corpuscular Volume 95.8 fl (80-94); Mean Platelet Volume 8.5 fl (7.4-10.4); Monocytes # 0.5 K/mm3 (0.1-1.0); Monocytes % 6.1 % (1.7-9.3); Neutrophils % 72.9 % (37.0-80.0); Platelet Count 221 K/mm3 (142-424); Red Blood Count 4.71 M/mm3 (4.60-6.20); Red Cell Distribution Width 14.1 % (11.5-17.5); White Blood Count 8.2 K/mm3 (4.8-10.8)
[2020-04-19 09:21] LABS: Chloride 107 mmol/L (98-107)
[2020-04-19 09:22] LABS: Sodium 139 mmol/L (136-145)
[2020-04-19 09:25] LABS: Blood Urea Nitrogen 17 mg/dl (9-20); Calcium 8.9 mg/dl (8.4-10.2); Carbon Dioxide 25 mmol/L (22.0-30.0); Creatinine Clearance Estimated 90 mL/min (50-200); Estimated Glomerular Filt Rate 83 ml/min (>60); GFR (African American) 101 ML/MIN (>60); Glucose 111 mg/dl (74-100)
== END 2020-04-19 14:04 | disposition home or self-care (01) ==
LOC: CATHLAB 08:31
PROVIDERS: PCP Internal Medicine Adolescent Medicine; Visit Provider Internal Medicine
DX: I25.10 Atherosclerotic heart disease of native coronary artery without angina pectoris (principal); I11.0 Hypertensive heart disease with heart failure; I50.32 Chronic diastolic (congestive) heart failure; Z95.5 Presence of coronary angioplasty implant and graft; E78.5 Hyperlipidemia, unspecified; I65.23 Occlusion and stenosis of bilateral carotid arteries
CPT/HCPCS: 80048; 85025; 93458; 99152; C1725; C1769; J1644; Q9967

== ENCOUNTER → 2020-06-01 08:15 | Outpatient (CLI) | payer MEDICARE, SELFPAY ==
[2020-06-01 08:47] LABS: Basophils # 0.1 K/mm3 (0-0.2); Basophils % 1.7 % (0.1-2.0); Eosinophils # 0.3 K/mm3 (0.0-0.4); Hematocrit 45.7 % (42.0-52.0); Hemoglobin 15.2 g/dL (14.1-18.0); Lymphocytes # 1.7 K/mm3 (0.7-4.5); Lymphocytes % 26.2 % (10-50); Mean Corpuscular HGB Conc 33.2 g/dL (31.8-35.4); Mean Corpuscular Hemoglobin 31.8 pg (27.0-31.2); Mean Corpuscular Volume 95.7 fl (80-94); Mean Platelet Volume 7.8 fl (7.4-10.4); Monocytes # 0.4 K/mm3 (0.1-1.0); Monocytes % 6.1 % (1.7-9.3); Platelet Count 202 K/mm3 (142-424); Red Blood Count 4.78 M/mm3 (4.60-6.20); Red Cell Distribution Width 13.9 % (11.5-17.5); White Blood Count 6.5 K/mm3 (4.8-10.8)
[2020-06-01 09:07] LABS: Chloride 104 mmol/L (98-107); Potassium 4.4 mmoL/L (3.5-5.1); Sodium 139 mmol/L (136-145)
[2020-06-01 09:09] LABS: Alanine Aminotransferase 29 U/L (12-78); Alkaline Phosphatase 129 U/L (38-126); Aspartate Amino Transferase 25 U/L (17-59); Bilirubin,Total 0.7 mg/dl (0.2-1.3); Blood Urea Nitrogen 15 mg/dl (9-20); Estimated Glomerular Filt Rate 74 ml/min (>60); GFR (African American) 89 ML/MIN (>60)
[2020-06-01 09:10] LABS: Albumin Level 3.7 g/dl (3.5-5.0); Albumin/Globulin Ratio 1.5 (1.1-1.8); Anion Gap 12.4 mEq/L (5-15); Calcium 8.9 mg/dl (8.4-10.2); Carbon Dioxide 27 mmol/L (22.0-30.0); Chol/HDL Ratio 3.4 (1-3.5); Cholesterol 140 mg/dl (140-200); Globulin 2.5 g/dL (1.3-3.2); Glucose 108 mg/dl (74-100); HDL Cholesterol 41 mg/dl (40-60); Total Protein,Serum 6.2 g/dl (6.3-8.2); Triglycerides 180 mg/dl (30-150); VLDL Cholesterol 36 mg/dL (0-40)
[2020-06-01 09:21] LABS: Direct LDL Cholesterol 78.96 mg/dL (100-129)
[2020-06-01 09:41] LABS: Thyroid Stimulating Hormone 3.17 uIU/mL (0.465-4.68)
== END ==
PROVIDERS: Visit Provider Internal Medicine Adolescent Medicine
DX: I25.10 Atherosclerotic heart disease of native coronary artery without angina pectoris (principal); I10 Essential (primary) hypertension; I51.9 Heart disease, unspecified
CPT/HCPCS: 36415; 80053; 80061; 84443; 85025

== ENCOUNTER → 2020-09-05 08:28 | Outpatient (CLI) | payer MEDICARE, SELFPAY ==
[2020-09-05 08:58] LABS: Basophils # 0.1 K/mm3 (0-0.2); Basophils % 1.5 % (0.1-2.0); Eosinophils # 0.1 K/mm3 (0.0-0.4); Eosinophils % 2.1 % (0.1-12.0); Hematocrit 51.7 % (42.0-52.0); Hemoglobin 17.1 g/dL (14.1-18.0); Lymphocytes % 29.4 % (10-50); Mean Corpuscular Hemoglobin 31.3 pg (27.0-31.2); Mean Corpuscular Volume 94.7 fl (80-94); Mean Platelet Volume 7.9 fl (7.4-10.4); Monocytes # 0.4 K/mm3 (0.1-1.0); Monocytes % 6.5 % (1.7-9.3); Neutrophils % 60.5 % (37.0-80.0); Platelet Count 225 K/mm3 (142-424); Red Blood Count 5.46 M/mm3 (4.60-6.20); Red Cell Distribution Width 14.5 % (11.5-17.5); White Blood Count 6.6 K/mm3 (4.8-10.8)
[2020-09-05 09:39] LABS: Chloride 106 mmol/L (98-107); Hemoglobin A1C 5.4 % (4.0-6.0); Potassium 4.9 mmoL/L (3.5-5.1); Sodium 142 mmol/L (136-145)
[2020-09-05 09:41] LABS: Alanine Aminotransferase 27 U/L (12-78); Aspartate Amino Transferase 25 U/L (17-59); Bilirubin,Total 0.6 mg/dl (0.2-1.3); Blood Urea Nitrogen 15 mg/dl (9-20); Estimated Glomerular Filt Rate 66 ml/min (>60); GFR (African American) 80 ML/MIN (>60)
[2020-09-05 09:42] LABS: Albumin/Globulin Ratio 1.5 (1.1-1.8); Alkaline Phosphatase 143 U/L (38-126); Anion Gap 11.9 mEq/L (5-15); Calcium 9.4 mg/dl (8.4-10.2); Carbon Dioxide 29 mmol/L (22.0-30.0); Chol/HDL Ratio 3.6 (1-3.5); Cholesterol 159 mg/dl (140-200); Globulin 2.6 g/dL (1.3-3.2); Glucose 110 mg/dl (74-100); HDL Cholesterol 44 mg/dl (40-60); Total Protein,Serum 6.6 g/dl (6.3-8.2); Triglycerides 176 mg/dl (30-150); VLDL Cholesterol 35 mg/dL (0-40)
[2020-09-05 09:53] LABS: Direct LDL Cholesterol 89.35 mg/dL (100-129)
== END ==
PROVIDERS: Visit Provider Internal Medicine Adolescent Medicine
DX: I25.10 Atherosclerotic heart disease of native coronary artery without angina pectoris (principal); E78.5 Hyperlipidemia, unspecified; E11.9 Type 2 diabetes mellitus without complications
CPT/HCPCS: 36415; 80053; 80061; 83036; 85025

== ENCOUNTER → 2020-12-19 15:09 | Outpatient (CLI) | payer MEDICARE, SELFPAY ==
[2020-12-19 15:43] LABS: Hemoglobin A1C 5.2 % (4.0-6.0)
[2020-12-19 16:21] LABS: Anion Gap 11.4 mEq/L (5-15); Blood Urea Nitrogen 19 mg/dl (9-20); Calcium 9.5 mg/dl (8.4-10.2); Carbon Dioxide 26 mmol/L (22.0-30.0); Chloride 107 mmol/L (98-107); Estimated Glomerular Filt Rate 60 ml/min (>60); GFR (African American) 72 ML/MIN (>60); Glucose 108 mg/dl (74-100); Potassium 4.4 mmoL/L (3.5-5.1); Sodium 140 mmol/L (136-145)
== END ==
PROVIDERS: Visit Provider Internal Medicine Adolescent Medicine
DX: E11.9 Type 2 diabetes mellitus without complications (principal)
CPT/HCPCS: 36415; 80048; 83036

== ENCOUNTER → 2021-03-26 13:17 | Outpatient (CLI) | payer MEDICARE, SELFPAY ==
[2021-03-26 15:49] LABS: Anion Gap 10.4 mEq/L (5-15); Blood Urea Nitrogen 23 mg/dl (9-20); Calcium 9.1 mg/dl (8.4-10.2); Carbon Dioxide 31 mmol/L (22.0-30.0); Chloride 103 mmol/L (98-107); Estimated Glomerular Filt Rate 73 ml/min (>60); GFR (African American) 89 ML/MIN (>60); Glucose 62 mg/dl (74-100); Potassium 5.4 mmoL/L (3.5-5.1); Sodium 139 mmol/L (136-145)
== END ==
PROVIDERS: Visit Provider Internal Medicine Adolescent Medicine
DX: E78.5 Hyperlipidemia, unspecified (principal); K59.09 Other constipation
CPT/HCPCS: 36415; 80048

== ENCOUNTER 2021-04-07 11:59 | Emergency (ER) | payer MEDICARE, SELFPAY ==
[2021-04-07 11:59] VITALS: BP 149/66; PULSE 56; RESP 16; TEMP 36.6; O2SAT 96; BMI 27.1
[2021-04-07 12:16] LABS: POC Glucose,Bedside 143 (70-110)
--- NOTE | 2021-04-07 12:17 | XR_ITS ---
PROCEDURE INFORMATION: Exam: XR Chest Exam date and time: 04/07/2021 12:17 PM Age: 70 years old Clinical indication: Shortness of breath; Patient HX: Changed BP medicine, feeling weak and dizzy today; Additional info: Weakness TECHNIQUE: Imaging protocol: XR of the chest. Views: 1 view. COMPARISON: [facility] CT CHEST W/ CONTRAST 10/18/2015 4:25 PM FINDINGS: Lungs: Unremarkable. No consolidation. Pleural spaces: Unremarkable. No pleural effusion. No pneumothorax. Heart/Mediastinum: Unremarkable. No cardiomegaly. Bones/joints: Unremarkable. IMPRESSION: No acute findings.
[2021-04-07 12:30] LABS: Basophils # 0.1 K/mm3 (0-0.2); Basophils % 0.9 % (0.1-2.0); Eosinophils # 0.1 K/mm3 (0.0-0.4); Eosinophils % 1.1 % (0.1-12.0); Hematocrit 49.1 % (42.0-52.0); Hemoglobin 16.6 g/dL (14.1-18.0); Lymphocytes # 1.5 K/mm3 (0.7-4.5); Lymphocytes % 17.1 % (10-50); Mean Corpuscular HGB Conc 33.8 g/dL (31.8-35.4); Mean Corpuscular Hemoglobin 31.1 pg (27.0-31.2); Mean Corpuscular Volume 92.1 fl (80-94); Monocytes # 0.4 K/mm3 (0.1-1.0); Monocytes % 4.5 % (1.7-9.3); Neutrophils # 6.6 K/mm3 (1.8-7.8); Neutrophils % 76.3 % (37.0-80.0); Platelet Count 196 K/mm3 (142-424); Red Blood Count 5.33 M/mm3 (4.60-6.20); Red Cell Distribution Width 14.3 % (11.5-17.5); White Blood Count 8.6 K/mm3 (4.8-10.8)
--- NOTE | 2021-04-07 12:30 | ECG_ITS ---
APPROVED REPORT Exam: Resting ECG HR:49 bpm ECG Measurements Heart Rate 49 AXES PA 172 P 57 QRSd 84 QRS 14 QT 470 T 40 QTc 424 Conclusion Marked sinus bradycardia Old Isolated q in III. Late r wave progression Abnormal ECG Electronically signed by : Abelardo Alford, 04/08/2021 08:51:57
--- NOTE | 2021-04-07 12:32 | HMH.EDGENADL ---
ED Disposition Clinical Impression: Weakness, Dehydration Disposition: Home, Self-Care Condition on Discharge: Good Additional Instructions: Sure to drink plenty of fluids on daily basis. Continue home medications. Medical emergency room for any new symptoms. Follow-up with primary care physician in 2 days. Referrals: Abelardo Alford MD [Primary Care Provider] - - Critical Care Critical Care Time: No Attestation: On 04/07/21, the high probability of a clinically significant, sudden or life threatening deterioration of the following system(s) required my full and direct attention, intervention and personal management. The time I documented below is in addition to time spent performing reported procedures but includes the following listed in this critical care notation. Medical Decision Making - Medical Records MR Comment: Normal sinus rhythm with ventricular rate 49. Nonspecific ST changes. However no acute findings noted. Patient physical exam was completely unremarkable. He received 1 L of IV fluid. His labs were normal. His EKG is normal. - Kiet Inquiry Pt receiving controlled substance: No Vital Signs: 04/07/21 11:59 04/07/21 13:00 04/07/21 13:30 Temperature 98 F Temperature Source Oral Pulse Rate 49 L 46 L Pulse Rate [Radial] 56 L Respiratory Rate 16 18 18 Blood Pressure 128/52 L 133/53 L Blood Pressure [Right Arm] 149/66 H Blood Pressure Mean 86 89 Blood Pressure Mean [Right Arm] 93 Blood Pressure Position [Right Arm] Sitting 02 Sat by Pulse Oximetry 96 95 96 Oxygen Delivery Method Room Air - Lab Data Lab Results 04/07/21 12:08: POC Glucose 143 H 04/07/21 12:18: WBC 8.6, RBC 5.33, Hgb 16.6, Hct 49.1, MCV 92.1, MCH 31.1, MCHC 33.8, RDW 14.3, Plt Count 196, MPV 8.0, Neut % (Auto) 76.3, Lymph % (Auto) 17.1, [place] % (Auto) 4.5, Eos % (Auto) 1.1, Baso % (Auto) 0.9, Neut # (Auto) 6.6, Lymph # (Auto) 1.5, [place] # (Auto) 0.4, Eos # (Auto) 0.1, Baso # (Auto) 0.1 04/07/21 12:18: Sodium 139, Potassium 4.2, Chloride 106, Carbon Dioxide 27, Anion Gap 10.2, BUN 16, Creatinine 1.00, Estimated Creat Clear 86, Estimated GFR 73, Est GFR ( Amer) 89, Glucose 151 H, Calcium 8.8, Total Bilirubin 0.5, AST 22, ALT 21, Alkaline Phosphatase 160 H, Troponin I < 0.01, Total Protein 7.3, Albumin 4.3, Globulin 3.0, Albumin/Globulin Ratio 1.4 Result diagrams: 04/07/21 12:18 04/07/21 12:18 Orders (Tests/Meds): ED MEDICATIONS Discontinued Medications Generic Name Dose Route Start Last Admin Trade Name Freq PRN Reason Stop Dose Admin Sodium Chloride 1,000 mls @ 999 mls/hr 04/07/21 12:30 04/07/21 12:21 Sod Chlor 0.9% 1000ml Bag IV 04/07/21 13:30 999 mls/hr .Q1H1M FARRAH Administration Ondansetron HCl 4 mg 04/07/21 12:23 04/07/21 12:24 Ondansetron 4mg/2ml Vial IV 04/07/21 12:24 4 mg ONCE ONE Administration ORDERS Category Date Time Status Troponin I Q3H Lab 04/07/21 15:30 Ordered Troponin I Q3H Lab 04/07/21 18:30 Ordered General Adult HPI - General Chief complaint: Weakness Stated complaint: dizziness, nausea Time Seen by Provider: 04/07/21 13:32 Mode of Arrival: Ambulatory Limitations: No Limitations Description of Symptoms (Recalled from ER Triage Doc. by RN): TO ED PER PVT CAR WITH C/O FEELING LIGHTHEADED, LEG WEAKNESS, NAUSEA X 1-2 WEEKS. PT STATES HX OF CONSTIPATION USED OTC MAG CITRATE WITH +RESULTS, THEN HAD DIARREHA X SEVERAL DAYS. SEEN BY PCP 1 WEEK AGO FOR SYMPTOMS HAD BLOOD WORK TOLD K+ WAS HIGH AND TO STOP LOSARTAN. SAW CARDIOLOGY 2 DAYS AGO AND TOLD TO RESTART LOSARTAN. PT STATES CONTINUES WITH SYMPTOMS. STATES I THINK I'M DEHYDRATED . BLOOD GLUCOSE 143 - History of Present Illness HPI narrative: Male walked to the emergency room complains of weakness and he thinks that she is dehydrated. According the patient he has severe constipation and he used multiple laxatives when he had good bowel movements with diarrhea that followed that. He
[2021-04-07 12:36] LABS: Chloride 106 mmol/L (98-107); Potassium 4.2 mmoL/L (3.5-5.1); Sodium 139 mmol/L (136-145)
[2021-04-07 12:39] LABS: Alanine Aminotransferase 21 U/L (12-78); Albumin Level 4.3 g/dl (3.5-5.0); Albumin/Globulin Ratio 1.4 (1.1-1.8); Alkaline Phosphatase 160 U/L (38-126); Anion Gap 10.2 mEq/L (5-15); Aspartate Amino Transferase 22 U/L (17-59); Bilirubin,Total 0.5 mg/dl (0.2-1.3); Blood Urea Nitrogen 16 mg/dl (9-20); Calcium 8.8 mg/dl (8.4-10.2); Carbon Dioxide 27 mmol/L (22.0-30.0); Creatinine Clearance Estimated 86 mL/min (50-200); Estimated Glomerular Filt Rate 73 ml/min (>60); GFR (African American) 89 ML/MIN (>60); Glucose 151 mg/dl (74-100); Total Protein,Serum 7.3 g/dl (6.3-8.2)
[2021-04-07 12:54] LABS: Troponin I < 0.01 ng/ml (0.00-0.034)
[2021-04-07 13:00] VITALS: BP 128/52; PULSE 49; RESP 18; O2SAT 95
[2021-04-07 13:30] VITALS: BP 133/53; PULSE 46; RESP 18; O2SAT 96
[2021-04-07 14:11] VITALS: BP 132/88; PULSE 42; RESP 16; TEMP 36.6; O2SAT 98
== END 2021-04-07 14:13 | disposition home or self-care (01) ==
PROVIDERS: Emergency Provider Internal Medicine; PCP Internal Medicine Adolescent Medicine
DX: E86.0 Dehydration (principal); K59.00 Constipation, unspecified; I10 Essential (primary) hypertension; E78.5 Hyperlipidemia, unspecified; K21.9 Gastro-esophageal reflux disease without esophagitis; I25.10 Atherosclerotic heart disease of native coronary artery without angina pectoris; Z79.899 Other long term (current) drug therapy
CPT/HCPCS: 71045; 80053; 82962; 84484; 85025; 93005; 96365; 96375; 99282; J2405

== ENCOUNTER → 2021-04-12 07:33 | Outpatient (CLI) | payer MEDICARE, SELFPAY ==
[2021-04-12 09:32] LABS: Chloride 104 mmol/L (98-107)
[2021-04-12 09:33] LABS: Potassium 4.4 mmoL/L (3.5-5.1); Sodium 141 mmol/L (136-145)
[2021-04-12 09:36] LABS: Anion Gap 14.4 mEq/L (5-15); Blood Urea Nitrogen 18 mg/dl (9-20); Carbon Dioxide 27 mmol/L (22.0-30.0); Estimated Glomerular Filt Rate 83 ml/min (>60); GFR (African American) 100 ML/MIN (>60); Glucose 110 mg/dl (74-100)
== END ==
PROVIDERS: Visit Provider Internal Medicine Cardiovascular Disease
DX: E78.2 Mixed hyperlipidemia (principal); I11.9 Hypertensive heart disease without heart failure; I25.10 Atherosclerotic heart disease of native coronary artery without angina pectoris; I50.89 Other heart failure; I65.23 Occlusion and stenosis of bilateral carotid arteries; R53.83 Other fatigue; R94.31 Abnormal electrocardiogram [ECG] [EKG]; Z95.5 Presence of coronary angioplasty implant and graft
CPT/HCPCS: 36415; 80048

== ENCOUNTER → 2021-04-20 11:12 | Outpatient (CLI) | payer MEDICARE, SELFPAY | LOC: RT 11:15 | PROVIDERS: PCP Internal Medicine Adolescent Medicine; Visit Provider Internal Medicine Cardiovascular Disease | DX: R00.1 Bradycardia, unspecified (principal); R06.00 Dyspnea, unspecified; R60.9 Edema, unspecified | CPT/HCPCS: 93270 ==

== ENCOUNTER → 2021-06-12 08:49 | Outpatient (CLI) | payer MEDICARE, SELFPAY ==
[2021-06-12 09:19] LABS: Basophils # 0.1 K/mm3 (0-0.2); Basophils % 1.3 % (0.1-2.0); Eosinophils # 0.2 K/mm3 (0.0-0.4); Hematocrit 48.8 % (42.0-52.0); Lymphocytes # 1.7 K/mm3 (0.7-4.5); Lymphocytes % 21.6 % (10-50); Mean Corpuscular HGB Conc 32.8 g/dL (31.8-35.4); Mean Corpuscular Hemoglobin 31.2 pg (27.0-31.2); Mean Platelet Volume 8.2 fl (7.4-10.4); Monocytes # 0.5 K/mm3 (0.1-1.0); Monocytes % 6.3 % (1.7-9.3); Neutrophils # 5.5 K/mm3 (1.8-7.8); Neutrophils % 68.8 % (37.0-80.0); Platelet Count 195 K/mm3 (142-424); Red Blood Count 5.14 M/mm3 (4.60-6.20); Red Cell Distribution Width 14.6 % (11.5-17.5); White Blood Count 8.1 K/mm3 (4.8-10.8)
[2021-06-12 10:20] LABS: Alanine Aminotransferase 18 U/L (12-78); Albumin Level 3.8 g/dl (3.5-5.0); Albumin/Globulin Ratio 1.6 (1.1-1.8); Alkaline Phosphatase 135 U/L (38-126); Anion Gap 10.7 mEq/L (5-15); Aspartate Amino Transferase 19 U/L (17-59); Bilirubin,Total 0.6 mg/dl (0.2-1.3); Blood Urea Nitrogen 16 mg/dl (9-20); Calcium 8.7 mg/dl (8.4-10.2); Carbon Dioxide 28 mmol/L (22.0-30.0); Chloride 108 mmol/L (98-107); Estimated Glomerular Filt Rate 95 ml/min (>60); GFR (African American) 115 ML/MIN (>60); Globulin 2.4 g/dL (1.3-3.2); Glucose 110 mg/dl (74-100); Potassium 4.7 mmoL/L (3.5-5.1); Sodium 142 mmol/L (136-145); Total Protein,Serum 6.2 g/dl (6.3-8.2)
[2021-06-12 10:38] LABS: Free Thyroxine Index 2.9 ug/dL (5.93-13.13); T4 (Thyroxine) 10.8 ug/dl (5.53-11.0); Triiodothryronine (T3) Uptake 27 % (23.5-40.5)
[2021-06-12 10:52] LABS: Thyroid Stimulating Hormone 2.77 uIU/mL (0.465-4.68)
== END ==
PROVIDERS: Visit Provider Internal Medicine Adolescent Medicine
DX: R53.81 Other malaise (principal); R53.83 Other fatigue; K21.9 Gastro-esophageal reflux disease without esophagitis
CPT/HCPCS: 36415; 80053; 84436; 84443; 84479; 85025

== ENCOUNTER → 2021-10-03 09:33 | Outpatient (CLI) | payer MEDICARE, SELFPAY ==
--- NOTE | 2021-10-03 09:37 | XR_ITS ---
PROCEDURE: XR HIP RT 2-3V W/PELVIS CLINICAL INDICATION: RT HIP PAIN COMPARISON: CR XR FEMUR RT 2V from 10/03/2021 FINDINGS: Right hip with pelvis: AP view of the pelvis shows mild osteoarthritic changes of both hips. There is minimal flattening of the right femoral head laterally which could be seen with femoral acetabular impingement. Please correlate with patient's clinical parameters. No fracture or dislocation. No lytic or blastic change. Right femur: The mid distal aspect of the right femur are unremarkable. IMPRESSION: Minimal osteoarthritic change of the hips. Minimal flattening of the right femoral head laterally raising the question of femoral acetabular impingement. Please correlate with clinical parameters. Dictated by: Trino Toscano MD 10/03/2021 16:55 Trino Toscano MD in [place] 10/03/2021 16:55
== END ==
LOC: RAD 09:34
PROVIDERS: PCP Internal Medicine Adolescent Medicine; Visit Provider Internal Medicine Adolescent Medicine
DX: M25.551 Pain in right hip (principal); M79.651 Pain in right thigh
CPT/HCPCS: 73502; 73552

== ENCOUNTER → 2021-10-17 10:22 | Outpatient (CLI) | payer MEDICARE, SELFPAY ==
[2021-10-17 10:56] LABS: Basophils # 0.1 K/mm3 (0-0.2); Basophils % 1.5 % (0.1-2.0); Eosinophils # 0.2 K/mm3 (0.0-0.4); Hematocrit 48.9 % (42.0-52.0); Hemoglobin 16.8 g/dL (14.1-18.0); Lymphocytes # 1.6 K/mm3 (0.7-4.5); Lymphocytes % 19.7 % (10-50); Mean Corpuscular HGB Conc 34.3 g/dL (31.8-35.4); Mean Corpuscular Hemoglobin 31.7 pg (27.0-31.2); Mean Corpuscular Volume 92.3 fl (80-94); Mean Platelet Volume 8.3 fl (7.4-10.4); Monocytes # 0.5 K/mm3 (0.1-1.0); Monocytes % 6.4 % (1.7-9.3); Neutrophils # 5.6 K/mm3 (1.8-7.8); Neutrophils % 70.4 % (37.0-80.0); Platelet Count 227 K/mm3 (142-424); Red Blood Count 5.29 M/mm3 (4.60-6.20); Red Cell Distribution Width 14.4 % (11.5-17.5); White Blood Count 7.9 K/mm3 (4.8-10.8)
[2021-10-17 11:58] LABS: Alanine Aminotransferase 33 U/L (12-78); Albumin Level 4.2 g/dl (3.5-5.0); Albumin/Globulin Ratio 1.6 (1.1-1.8); Alkaline Phosphatase 123 U/L (38-126); Anion Gap 11.4 mEq/L (5-15); Aspartate Amino Transferase 31 U/L (17-59); Bilirubin,Total 0.6 mg/dl (0.2-1.3); Blood Urea Nitrogen 19 mg/dl (9-20); Calcium 9.8 mg/dl (8.4-10.2); Carbon Dioxide 29 mmol/L (22.0-30.0); Chloride 106 mmol/L (98-107); Estimated Glomerular Filt Rate 66 ml/min (>60); GFR (African American) 79 ML/MIN (>60); Globulin 2.6 g/dL (1.3-3.2); Glucose 107 mg/dl (74-100); Magnesium 2.1 mg/dl (1.6-2.3); Potassium 5.4 mmoL/L (3.5-5.1); Sodium 141 mmol/L (136-145); Total Protein,Serum 6.8 g/dl (6.3-8.2)
[2021-10-17 12:31] LABS: Thyroid Stimulating Hormone 3.31 uIU/mL (0.465-4.68)
== END ==
PROVIDERS: Visit Provider Internal Medicine Adolescent Medicine
DX: I25.10 Atherosclerotic heart disease of native coronary artery without angina pectoris (principal); E78.5 Hyperlipidemia, unspecified
CPT/HCPCS: 36415; 80053; 83735; 84443; 85025

== ENCOUNTER → 2022-02-15 07:56 | Outpatient (CLI) | payer MEDICARE, SELFPAY ==
[2022-02-15 09:43] LABS: Basophils # 0.1 K/mm3 (0-0.2); Basophils % 1.5 % (0.1-2.0); Eosinophils # 0.2 K/mm3 (0.0-0.4); Eosinophils % 3.1 % (0.1-12.0); Hematocrit 48.3 % (42.0-52.0); Hemoglobin 15.6 g/dL (14.1-18.0); Lymphocytes # 1.6 K/mm3 (0.7-4.5); Mean Corpuscular HGB Conc 32.3 g/dL (31.8-35.4); Mean Corpuscular Hemoglobin 31.2 pg (27.0-31.2); Mean Corpuscular Volume 96.6 fl (80-94); Mean Platelet Volume 8.9 fl (7.4-10.4); Monocytes # 0.4 K/mm3 (0.1-1.0); Monocytes % 7.5 % (1.7-9.3); Neutrophils % 56.9 % (37.0-80.0); Platelet Count 201 K/mm3 (142-424); Red Cell Distribution Width 14.9 % (11.5-17.5); White Blood Count 5.3 K/mm3 (4.8-10.8)
[2022-02-15 10:17] LABS: Alanine Aminotransferase 29 U/L (12-78); Albumin Level 3.7 g/dl (3.5-5.0); Albumin/Globulin Ratio 1.6 (1.1-1.8); Alkaline Phosphatase 125 U/L (38-126); Anion Gap 8.6 mEq/L (5-15); Aspartate Amino Transferase 28 U/L (17-59); Bilirubin,Total 0.6 mg/dl (0.2-1.3); Blood Urea Nitrogen 17 mg/dl (9-20); Calcium 8.7 mg/dl (8.4-10.2); Carbon Dioxide 25 mmol/L (22.0-30.0); Chloride 110 mmol/L (98-107); Chol/HDL Ratio 3.5 (1-3.5); Cholesterol 125 mg/dl (140-200); Estimated Glomerular Filt Rate 73 ml/min (>60); GFR (African American) 89 ML/MIN (>60); Globulin 2.3 g/dL (1.3-3.2); Glucose 121 mg/dl (74-100); HDL Cholesterol 36 mg/dl (40-60); Potassium 4.6 mmoL/L (3.5-5.1); Sodium 139 mmol/L (136-145); Triglycerides 166 mg/dl (30-150); VLDL Cholesterol 33 mg/dL (0-40)
[2022-02-15 10:25] LABS: NT Pro Brain Natriuretic Pep. 221 pg/mL (0-125)
[2022-02-15 10:28] LABS: Direct LDL Cholesterol 56.97 mg/dL (100-129)
[2022-02-15 10:34] LABS: 25-OH Vitamin D, Total 42.1 ng/mL (30-100)
[2022-02-15 10:39] LABS: Free Thyroxine Index 2.6 ug/dL (5.93-13.13); T4 (Thyroxine) 10.4 ug/dl (5.53-11.0); Triiodothryronine (T3) Uptake 25 % (23.5-40.5)
[2022-02-15 11:06] LABS: Vitamin B12 500 pg/mL (239-931)
== END ==
PROVIDERS: Visit Provider Internal Medicine Adolescent Medicine
DX: I25.10 Atherosclerotic heart disease of native coronary artery without angina pectoris (principal); E78.5 Hyperlipidemia, unspecified; E11.9 Type 2 diabetes mellitus without complications; R25.1 Tremor, unspecified; I51.9 Heart disease, unspecified; R06.09 Other forms of dyspnea
CPT/HCPCS: 36415; 80053; 80061; 82306; 82607; 83735; 83880; 84436; 84443; 84479; 85025

== ENCOUNTER 2022-03-01 15:33 | Emergency (ER) | payer MEDICARE, SELFPAY ==
[2022-03-01] VITALS (8 sets, daily range): BP systolic 106–146; BP diastolic 49–84; PULSE 74–90; RESP 16–18; TEMP 36.8; O2SAT 95–97; BMI 29.1
--- NOTE | 2022-03-01 15:42 | ECG_ITS ---
APPROVED REPORT Exam: Resting ECG HR:90 bpm ECG Measurements Heart Rate 90 AXES OR 166 P 67 QRSd 94 QRS 62 QT 359 T 58 QTc 407 Conclusion SINUS RHYTHM LOW QRS VOLTAGE IN PRECORDIAL LEADS [QRS DEFLECTION < 1.0 mV IN CHEST LEADS] Isolated q in iii Electronically signed by : Abelardo Alford MD 03/01/2022 17:02:50
[2022-03-01 16:16] LABS: Basophils # 0.2 K/mm3 (0-0.2); Basophils % 1.6 % (0.1-2.0); Eosinophils # 0.1 K/mm3 (0.0-0.4); Eosinophils % 0.8 % (0.1-12.0); Hemoglobin 17.5 g/dL (14.1-18.0); Lymphocytes # 0.9 K/mm3 (0.7-4.5); Lymphocytes % 7.4 % (10-50); Mean Corpuscular Hemoglobin 31.3 pg (27.0-31.2); Mean Platelet Volume 8.4 fl (7.4-10.4); Monocytes # 0.5 K/mm3 (0.1-1.0); Monocytes % 4.4 % (1.7-9.3); Neutrophils # 10.4 K/mm3 (1.8-7.8); Neutrophils % 85.8 % (37.0-80.0); Platelet Count 236 K/mm3 (142-424); Red Blood Count 5.58 M/mm3 (4.60-6.20); Red Cell Distribution Width 14.9 % (11.5-17.5); White Blood Count 12.2 K/mm3 (4.8-10.8)
[2022-03-01 16:21] LABS: Chloride 105 mmol/L (98-107); Potassium 4.7 mmoL/L (3.5-5.1); Sodium 141 mmol/L (136-145)
[2022-03-01 16:23] LABS: Blood Urea Nitrogen 22 mg/dl (9-20); Creatinine Clearance Estimated 82 mL/min (50-200); Estimated Glomerular Filt Rate 66 ml/min (>60); GFR (African American) 79 ML/MIN (>60)
[2022-03-01 16:24] LABS: Alanine Aminotransferase 44 U/L (12-78); Albumin Level 4.2 g/dl (3.5-5.0); Albumin/Globulin Ratio 1.4 (1.1-1.8); Alkaline Phosphatase 155 U/L (38-126); Anion Gap 12.7 mEq/L (5-15); Aspartate Amino Transferase 44 U/L (17-59); Bilirubin,Total 0.6 mg/dl (0.2-1.3); Calcium 9.2 mg/dl (8.4-10.2); Carbon Dioxide 28 mmol/L (22.0-30.0); Glucose 134 mg/dl (74-100); Lipase 151 U/L (23-300); Total Protein,Serum 7.2 g/dl (6.3-8.2)
[2022-03-01 16:30] LABS: MANUAL DIFFERENTIAL MANUAL DIFFERENTIAL (MANUAL DIFF)
[2022-03-01 16:48] LABS: Troponin I < 0.01 ng/ml (0.00-0.034)
[2022-03-01 17:07] LABS: Lymphocytes % 12 % (10-50); Monocytes % 3 % (2-9); Neutrophils % 85 % (42-76); Platelet Estimate Normal; RBC Morphology Normal; Total Cells Counted 100
--- NOTE | 2022-03-01 17:55 | PC.NURSE ---
Updated pt on POC. Advised him MD was tied up with critical pt at this time. Pt asked for something to drink and a snack. Called dietary and requested food.
--- NOTE | 2022-03-01 18:23 | HMH.EDGENADL ---
ED Disposition Clinical Impression: Gastroenteritis Disposition: Home, Self-Care Condition on Discharge: Good Instructions: DI for Diarrhea and Traveler's Diarrhea -- Adult, DI for Diarrhea and Traveler's Diarrhea -- Child, DI for Nausea -- Adult, DI for Nausea -- Child Additional Instructions: Zofran as directed for nausea, vomiting. Drink plenty fluids stay hydrated. Continue home medication as previously directed. Return with new or concerning symptoms. Prescriptions: Ondansetron [Zofran 4mg ODT] 4 mg SL TIDP PRN 3 Days #12 tab PRN Reason: Nausea And Vomiting Transmission Status: Pending to [facility] Referrals: Abelardo Alford MD [Primary Care Provider] - - Critical Care Critical Care Time: No Attestation: On 03/01/22, the high probability of a clinically significant, sudden or life threatening deterioration of the following system(s) required my full and direct attention, intervention and personal management. The time I documented below is in addition to time spent performing reported procedures but includes the following listed in this critical care notation. Medical Decision Making - Medical Records Medical records reviewed: Yes: I reviewed the patient's medical records. - Kiet Inquiry Pt receiving controlled substance: No Vital Signs: 03/01/22 15:34 03/01/22 16:00 03/01/22 16:37 Temperature 98.3 F Temperature Source Oral Pulse Rate 77 83 Pulse Rate [Right Radial] 86 Respiratory Rate 18 16 16 Blood Pressure 146/71 H 125/64 Blood Pressure [Left Arm] 146/71 H Blood Pressure Mean Blood Pressure Mean [Left Arm] 96 Blood Pressure Source [Left Arm] Automatic Cuff Blood Pressure Position [Left Arm] Sitting 02 Sat by Pulse Oximetry 96 96 95 Oxygen Delivery Method Room Air 03/01/22 17:00 03/01/22 17:30 03/01/22 18:01 Temperature Temperature Source Pulse Rate 74 84 90 Pulse Rate [Right Radial] Respiratory Rate 16 16 Blood Pressure 106/49 L 122/56 L 108/84 L Blood Pressure [Left Arm] Blood Pressure Mean 60 72 85 Blood Pressure Mean [Left Arm] Blood Pressure Source [Left Arm] Blood Pressure Position [Left Arm] 02 Sat by Pulse Oximetry 95 95 96 Oxygen Delivery Method 03/01/22 18:30 Temperature Temperature Source Pulse Rate 90 Pulse Rate [Right Radial] Respiratory Rate 16 Blood Pressure 119/62 Blood Pressure [Left Arm] Blood Pressure Mean 81 Blood Pressure Mean [Left Arm] Blood Pressure Source [Left Arm] Blood Pressure Position [Left Arm] 02 Sat by Pulse Oximetry 96 Oxygen Delivery Method - Lab Data Lab Results 03/01/22 15:45: Troponin I < 0.01 03/01/22 15:45: WBC 12.2 H, RBC 5.58, Hgb 17.5, Hct 53.0 H, MCV 95.0 H, MCH 31.3 H, MCHC 33.0, RDW 14.9, Plt Count 236, MPV 8.4, Neut % (Auto) 85.8 H, Lymph % (Auto) 7.4 L, Day % (Auto) 4.4, Eos % (Auto) 0.8, Baso % (Auto) 1.6, Neut # (Auto) 10.4 H, Lymph # (Auto) 0.9, Day # (Auto) 0.5, Eos # (Auto) 0.1, Baso # (Auto) 0.2, Total Counted 100, Neutrophils % (Manual) 85 H, Lymphocytes % (Manual) 12, Monocytes % (Manual) 3, Platelet Estimate Normal, RBC Morphology Normal 03/01/22 15:45: Sodium 141, Potassium 4.7, Chloride 105, Carbon Dioxide 28, Anion Gap 12.7, BUN 22 H, Creatinine 1.10, Estimated Creat Clear 82, Estimated GFR 66, Est GFR ( Amer) 79, Glucose 134 H, Calcium 9.2, Total Bilirubin 0.6, AST 44, ALT 44, Alkaline Phosphatase 155 H, Total Protein 7.2, Albumin 4.2, Globulin 3.0, Albumin/Globulin Ratio 1.4, Lipase 151 Result diagrams: 03/01/22 15:45 03/01/22 15:45 Orders (Tests/Meds): ED MEDICATIONS Discontinued Medications Generic Name Dose Route Start Last Admin Trade Name Freq PRN Reason Stop Dose Admin Lactated Ringer's 1,000 mls @ 999 mls/hr 03/01/22 16:15 03/01/22 16:15 Lactated Ringer's 1000 Ml Bag IV 03/01/22 17:15 999 mls/hr .Q1H1M FARRAH Administration Ondansetron HCl 4 mg 03/01/22 16:05 03/01/22 16:05 Ondansetron 4mg/2ml Vi
== END 2022-03-01 19:38 | disposition home or self-care (01) ==
LOC: HMH.CTC 15:42 → ER 15:59
PROVIDERS: Emergency Provider Emergency Medicine; PCP Internal Medicine Adolescent Medicine
DX: K52.9 Noninfective gastroenteritis and colitis, unspecified (principal); E11.9 Type 2 diabetes mellitus without complications; K21.9 Gastro-esophageal reflux disease without esophagitis; I10 Essential (primary) hypertension; E78.5 Hyperlipidemia, unspecified
CPT/HCPCS: 80053; 83690; 84484; 85007; 85025; 93005; 96360; 96375; 99284; J2405

== ENCOUNTER → 2022-05-03 14:20 | Outpatient (CLI) | payer MEDICARE, SELFPAY ==
[2022-05-03 15:13] LABS: Basophils # 0.1 K/mm3 (0-0.2); Basophils % 1.1 % (0.1-2.0); Eosinophils # 0.2 K/mm3 (0.0-0.4); Eosinophils % 2.1 % (0.1-12.0); Hematocrit 48.9 % (42.0-52.0); Hemoglobin 15.4 g/dL (14.1-18.0); Lymphocytes # 1.9 K/mm3 (0.7-4.5); Lymphocytes % 21.5 % (10-50); Mean Corpuscular HGB Conc 31.4 g/dL (31.8-35.4); Mean Corpuscular Hemoglobin 30.7 pg (27.0-31.2); Mean Corpuscular Volume 97.8 fl (80-94); Mean Platelet Volume 8.7 fl (7.4-10.4); Monocytes # 0.6 K/mm3 (0.1-1.0); Monocytes % 7.1 % (1.7-9.3); Neutrophils # 6.2 K/mm3 (1.8-7.8); Neutrophils % 68.3 % (37.0-80.0); Platelet Count 202 K/mm3 (142-424); Red Cell Distribution Width 14.6 % (11.5-17.5)
[2022-05-03 16:19] LABS: Chloride 104 mmol/L (98-107); Potassium 4.3 mmoL/L (3.5-5.1); Sodium 137 mmol/L (136-145)
[2022-05-03 16:22] LABS: Anion Gap 10.3 mEq/L (5-15); Blood Urea Nitrogen 15 mg/dl (9-20); Calcium 9.1 mg/dl (8.4-10.2); Carbon Dioxide 27 mmol/L (22.0-30.0); Estimated Glomerular Filt Rate 83 ml/min (>60); GFR (African American) 100 ML/MIN (>60); Glucose 97 mg/dl (74-100)
[2022-05-03 16:31] LABS: NT Pro Brain Natriuretic Pep. 138 pg/mL (0-125)
== END ==
PROVIDERS: PCP Internal Medicine Adolescent Medicine; Visit Provider Internal Medicine Cardiovascular Disease
DX: E78.5 Hyperlipidemia, unspecified (principal); I11.9 Hypertensive heart disease without heart failure; I25.10 Atherosclerotic heart disease of native coronary artery without angina pectoris; I65.29 Occlusion and stenosis of unspecified carotid artery; R06.00 Dyspnea, unspecified; R42 Dizziness and giddiness; R53.1 Weakness; R53.83 Other fatigue
CPT/HCPCS: 36415; 80048; 83880; 85025

== ENCOUNTER → 2022-05-10 14:18 | Outpatient (CLI) | payer MEDICARE, SELFPAY | LOC: RT 14:19 | PROVIDERS: PCP Internal Medicine Adolescent Medicine; Visit Provider Internal Medicine Cardiovascular Disease | DX: E78.5 Hyperlipidemia, unspecified (principal); E86.0 Dehydration; I11.9 Hypertensive heart disease without heart failure; I20.8 Other forms of angina pectoris; R06.00 Dyspnea, unspecified; R42 Dizziness and giddiness; R53.1 Weakness | CPT/HCPCS: 93306 ==

== ENCOUNTER → 2023-07-15 09:03 | Outpatient (CLI) | payer MEDICARE, SELFPAY ==
[2023-07-15 10:16] LABS: Basophils # 0.1 K/mm3 (0-0.2); Basophils % 0.9 % (0.1-2.0); Eosinophils # 0.2 K/mm3 (0.0-0.4); Eosinophils % 2.4 % (0.1-12.0); Hematocrit 52.5 % (42.0-52.0); Hemoglobin 16.6 g/dL (14.1-18.0); Lymphocytes # 1.8 K/mm3 (0.7-4.5); Lymphocytes % 23.4 % (10-50); Mean Corpuscular HGB Conc 31.7 g/dL (31.8-35.4); Mean Corpuscular Hemoglobin 30.1 pg (27.0-31.2); Mean Corpuscular Volume 94.9 fl (80-94); Mean Platelet Volume 8.8 fl (7.4-10.4); Monocytes # 0.4 K/mm3 (0.1-1.0); Monocytes % 5.6 % (1.7-9.3); Neutrophils # 5.3 K/mm3 (1.8-7.8); Neutrophils % 67.7 % (37.0-80.0); Platelet Count 186 K/mm3 (142-424); Red Blood Count 5.53 M/mm3 (4.60-6.20); White Blood Count 7.8 K/mm3 (4.8-10.8)
[2023-07-15 11:12] LABS: Hemoglobin A1C 5.9 % (4.0-6.0)
[2023-07-15 11:50] LABS: Alanine Aminotransferase 31 U/L (12-78); Albumin Level 3.9 g/dl (3.5-5.0); Albumin/Globulin Ratio 1.4 (1.1-1.8); Alkaline Phosphatase 146 U/L (38-126); Anion Gap 13.7 mEq/L (5-15); Aspartate Amino Transferase 34 U/L (17-59); Bilirubin,Total 0.5 mg/dl (0.2-1.3); Blood Urea Nitrogen 18 mg/dl (9-20); Calcium 8.9 mg/dl (8.4-10.2); Carbon Dioxide 25 mmol/L (22.0-30.0); Chloride 107 mmol/L (98-107); Chol/HDL Ratio 3.7 (1-3.5); Cholesterol 144 mg/dl (140-200); Estimated Glomerular Filt Rate 73 ml/min (>60); GFR (African American) 88 ML/MIN (>60); Globulin 2.7 g/dL (1.3-3.2); Glucose 130 mg/dl (74-100); HDL Cholesterol 39 mg/dl (40-60); Potassium 4.7 mmoL/L (3.5-5.1); Sodium 141 mmol/L (136-145); Total Protein,Serum 6.6 g/dl (6.3-8.2); Triglycerides 178 mg/dl (30-150); VLDL Cholesterol 36 mg/dL (0-40)
[2023-07-15 12:01] LABS: Direct LDL Cholesterol 74.03 mg/dL (100-129)
[2023-07-15 12:06] LABS: 25-OH Vitamin D, Total 35.3 ng/mL (30-100)
[2023-07-15 12:39] LABS: Vitamin B12 355 pg/mL (239-931)
== END ==
PROVIDERS: PCP Internal Medicine Adolescent Medicine; Visit Provider Internal Medicine Adolescent Medicine
DX: I25.10 Atherosclerotic heart disease of native coronary artery without angina pectoris (principal); E11.40 Type 2 diabetes mellitus with diabetic neuropathy, unspecified; G60.3 Idiopathic progressive neuropathy; Z68.33 Body mass index [BMI] 33.0-33.9, adult
CPT/HCPCS: 36415; 80053; 80061; 82306; 82607; 83036; 83735; 85025

== ENCOUNTER 2024-02-18 07:57 | Outpatient (CLI) | payer MEDICARE, SELFPAY ==
--- NOTE | 2024-02-18 07:58 | NM_ITS ---
APPROVED REPORT Exam: Nuclear Stress Test Indication: SOB, HTN, CAD, High cholesterol, DM Patient Location: Outpatient Stress Tech: Dominga Luu [place] Tech:Yasmin Moreland, ARRT, RT (R)(N) Ht: 6 ft 0 in Wt: 215 lbs HR: 57 bpm BP: 174/66 mmHg BSA: 2.20 m2 TID: 1.13 History: SOB, HTN, CAD, High cholesterol, DM Procedure: Patient received 0.4 mg of intravenous Lexiscan, resting heart rate 57 bpm, resting blood pressure 174/66 mmHg, with Lexiscan maximum heart rate achieved was 91 bpm which is % of the maximum predicted heart rate and blood pressure was 174/66 mmHg. With Lexiscan, patient denied any complaint of chest pain. Cardiac Stress and Resting SPECT Images: Cardiac Stress and Resting SPECT images were obtained using technetium 99m Myoview 32.5 mCi stress and 10.00 mCi at rest. The patient could not lie on his abdomen. Therefore, prone stress imaging could not be performed. This may affect the diagnostic interpretation of the study findings. Resting and stress imaging in supine positions demonstrate no evidence of fixed or reversible perfusion defects. Gated imaging demonstrates normal global and regional LV systolic function. LVEF is calculated at 55%. Of note, the RV wall appears thickened. Correlation with TTE is recommended. Conclusion: No evidence of fixed or reversible perfusion defects. Gated imaging demonstrates normal global and regional LV systolic function. LVEF is calculated at 55%. Of note, the RV wall appears thickened. Correlation with TTE is recommended. Electronically signed by : Nidia Marx MD 02/19/2024 13:22:09
[2024-02-18] MEDS: ISOTOPE MYOVIEW (PER STUDY) 1 DOSE IV (09:12)
[2024-02-18] MEDS: REGADENOSON 0.4MG/5ML SYRINGE 0.400000000000000022 MG IV (09:12)
[2024-02-18] MEDS: SODIUM CHLORIDE 0.9% 10ML SYR (RAD ONLY) 10 ML IV ×2 (09:12)
--- NOTE | 2024-02-18 09:17 | CA_ITS ---
APPROVED REPORT EXAM: Comprehensive 2D, Doppler, and color-flow Echocardiogram Pipe Organ Technician: RUBI Diaz, RVS Ht: 6 ft 0 in Wt: 221lbs BSA: 2.22 BP: 130/58 mmHg Indications: Angina, Diastolic dysfunction, CAD, HLD Echo Enhancing Agent Comments: Technically limited windows due to patient intolerance to apical touch. 2D Dimensions IVSd 0.80 cm M: 0.6-1.2 LVEF (Visual) 72.00 % PWd 0.95 cm M: 0.6 - 1.2 LA Volume 69.90 mL LVDd 5.39 cm M: 4.2 - 5.9 LA Volume Index 31.49 mL/m2 (M/F) 16-34 LVDs 3.15 cm M: 2.5 - 4.0 EF AP4 59.30 % Left Atrium 2.58 cm M: 3.0 - 4.0 GL Strain -27.0 % M-Mode Dimensions RVDd 2.37 cm (0.9-2.6) LA Diam 3.96 cm (1.9-4.0) LVDd 5.40 cm (3.5-5.7) LVDs 4.74 cm (3.5-5.7) IVSd 1.16 cm (0.6-1.1) PWd 0.88 cm (0.6-1.1) EF (Teich) 50.00% EPSs 0.40 cm FS 25.00% EDV (Teich) 165.20 mL TAPSE 3.26 (<1.7) ESV (Teich) 104.40 mL LV Diastology E Decel Time 183 (160-240 msec) E/A Ratio 0.92 MED A' 11.00 cm/s LAT A' 11.80 cm/s Aortic Valve MELODY Index 1.49 cm2/m2 AoV Peak William. 99.0 (50-130 cm/s) AO Peak GR. 3.90 mmHg AO Mean GR. 2.00 (<5 mmHg) AO VTI 23.9 (18-25 cm) MELODY (VTI) 3.39 (2.5-4.5 cm2) Mitral Valve MV A Velocity 74.0 (40-130 cm/s) E/A Ratio 0.92 Pulmonary Valve PV Peak Velocity 80.0 (50-150 cm/s) UT End VMAX 179.0 cm/s Tricuspid Valve TR P. Velocity 214.00 cm/s RAP Estimate 10.00 mmHg RVSP 28.30 mmHg Left Ventricle The left ventricle is normal size. The left ventricular systolic function is normal. The left ventricular ejection fraction is within the normal range. Proximal septal thickening is noted. There is normal LV segmental wall motion. The left ventricular diastolic function is normal. LVEF is 55%. Right Ventricle Right ventricle is mildly dilated. The right ventricular systolic function is normal. Atria The left atrium size is normal. The right atrium size is normal. The interatrial septum is not well visualized. Aortic Valve The aortic valve is mildly thickened. There is no aortic valvular stenosis. Mild aortic regurgitation. Mitral Valve The mitral valve leaflets are mildly thickened. No evidence of mitral valve stenosis. Mild mitral regurgitation. Tricuspid Valve The tricuspid valve leaflets are thin and pliable. Trace tricuspid regurgitation. There is insufficient TR jet to estimate RVSP. Pulmonic Valve The pulmonary valve is normal in structure. Mild pulmonic regurgitation. Great Vessels The aortic root is normal in size. The ascending aorta is normal in size. The IVC is not well visualized. Pericardium There is no pericardial effusion. Other Information Study Quality: Technically Difficult Conclusion Technically difficult study due to poor accoustic windows and patient's inability to tolerate apical views. Normal biventricular systolic function. Mild RV dilation. Mild AI, mild MR, mild PI. Electronically signed by : Nidia Marx MD 02/22/2024 16:05:39
--- NOTE | 2024-02-18 09:17 | CA_ITS ---
FINAL REPORT TECHNIQUE: Color Doppler, duplex Doppler and dodge scale sonography of the bilateral neck arterial vasculature was performed. Velocities were measured in the carotid arteries. Stenosis evaluation based on the validated velocity criteria. CLINICAL HISTORY: tinnitus, jesus, cad COMPARISON: None FINDINGS: The peak systolic velocity of the right common carotid artery is 87 cm/s. The peak systolic velocity of the right internal carotid artery is 113 cm/s and end diastolic velocity 26 cm/s. The ICA/CCA ratio is 1.86. A mild amount of plaque is present. The right external carotid artery is patent. The right vertebral artery is patent with antegrade flow. The peak systolic velocity of the left common carotid artery is 73 cm/s. The peak systolic velocity of the left internal carotid artery is 103 cm/s and end diastolic velocity 24 cm/s. The ICA/CCA ratio is 1.80. A mild amount of plaque is present. The left external carotid artery is patent.The left vertebral artery is patent with antegrade flow. IMPRESSION: Less than 50% bilateral carotid stenoses. Bilateral patent vertebral arteries with antegrade flow. If indicated, CTA or MRA could further evaluate. Reviewed, Interpreted and Dictated by Vinay Gentile MD Transcribed by Caridad Laguerre Authenticated and [facility]
--- NOTE | 2024-02-18 09:31 | CA_ITS ---
APPROVED REPORT Exam: Pharmacologic Technologist: Dominga Hill, Ht: 6 ft 0 in Wt: 221 lbs BSA: 2.22 m2 HR: 53 bpm BP: 174/66 mmHg Rhythm: NSR Medical History Medications: Aspirin,,,,, Gabapentin,,,,, Diazepam,,,,, Vitamin D3,,,,, Losartan,,,,, Ropinirole,,,,, Aleve,,,,, BisOPROLOL Fumarate,,,,, MeLATONIN,,,,, Mirtazapine,,,,, Methocarbamol,,,,, JaRDiance,,,,, Stress Test Details Test: LEXISCAN Reason for pharmacologic stress test: physical limitation. HR Resting HR: 57 bpm Max Heart Rate (APMHR): 145 bpm Max HR Achieved: 91 bpm Target HR (85% APMHR): 123 bpm % of APMHR: 63 Recovery HR: 58 bpm BP Resting BP: 174.0/66.0 mmHg Max BP: 174.0/66.0 mmHg Recovery BP: 155.0/65.0 mmHg ECG Resting ECG: Sinus bradycardia Stress ECG: No significant ST changes Arrhythmia: None Clinical Exercise duration: 04:01 min Highest Stage Achieved: Stress ECG Conclusion Symptoms: SOA, mild head discomfort. No CP. Arrhythmias/Ectopy: None ST-T Changes: No significant ST changes. Conclusion: Unremarkable Lexiscan stress. Myoview images reported separately. Test Summary REST . . . . . . . Resting REST 03:44 . . 57 . 174/ 66 . . Stage 1 01:00 . . 90 . . . . Stage 2 01:00 . . 72 . . . . Stage 3 01:00 . . 66 . 154/ 70 . . Stage 4 01:00 . . 62 . 153/ 69 . . Stage 4 01:01 . . 62 . 153/ 69 . Stop exercise at 04:01 RECOVERY 01:00 . . 68 . . . . RECOVERY 02:00 . . 58 . . . . RECOVERY 03:00 . . 58 . 161/ 67 . . RECOVERY 03:54 . . 58 . 155/ 65 . . Electronically signed by : Nidia Marx MD 02/19/2024 13:20:32
== END 2024-02-18 23:59 ==
LOC: RAD 07:58
PROVIDERS: PCP Internal Medicine Adolescent Medicine; Visit Provider Internal Medicine
DX: Z95.5 Presence of coronary angioplasty implant and graft (principal); I11.9 Hypertensive heart disease without heart failure; I25.10 Atherosclerotic heart disease of native coronary artery without angina pectoris; R00.1 Bradycardia, unspecified; R53.83 Other fatigue; I65.23 Occlusion and stenosis of bilateral carotid arteries; H93.13 Tinnitus, bilateral; E78.2 Mixed hyperlipidemia
CPT/HCPCS: 78452; 93017; 93018; 93306; 93880; A9502; J2785

== ENCOUNTER 2024-04-05 16:03 | Outpatient (CLI) | payer MEDICARE, SELFPAY ==
[2024-04-05 17:07] LABS: Basophils # 0.1 K/mm3 (0-0.2); Basophils % 1.6 % (0.1-2.0); Eosinophils # 0.2 K/mm3 (0.0-0.4); Eosinophils % 2.7 % (0.1-12.0); Hematocrit 49.4 % (42.0-52.0); Hemoglobin 16.2 g/dL (14.1-18.0); Lymphocytes # 2.1 K/mm3 (0.7-4.5); Lymphocytes % 25.4 % (10-50); Mean Corpuscular HGB Conc 32.8 g/dL (31.8-35.4); Mean Corpuscular Hemoglobin 31.7 pg (27.0-31.2); Mean Corpuscular Volume 96.8 fl (80-94); Mean Platelet Volume 8.6 fl (7.4-10.4); Monocytes # 0.5 K/mm3 (0.1-1.0); Monocytes % 6.6 % (1.7-9.3); Neutrophils # 5.2 K/mm3 (1.8-7.8); Neutrophils % 63.6 % (37.0-80.0); Platelet Count 178 K/mm3 (142-424); Red Blood Count 5.11 M/mm3 (4.60-6.20); White Blood Count 8.1 K/mm3 (4.8-10.8)
[2024-04-05 17:37] LABS: Alanine Aminotransferase 35 U/L (12-78); Albumin Level 4.1 g/dl (3.5-5.0); Alkaline Phosphatase 162 U/L (38-126); Anion Gap 13.3 mEq/L (5-15); Aspartate Amino Transferase 36 U/L (17-59); Bilirubin,Direct 0.2 mg/dl (0.0-0.4); Bilirubin,Indirect 0.4 mg/dL (0.0-0.9); Bilirubin,Total 0.6 mg/dl (0.2-1.3); Bilirubin,Unconjugated 0.4 mg/dL (0.0-1.1); Blood Urea Nitrogen 15 mg/dl (9-20); Calcium 9.5 mg/dl (8.4-10.2); Carbon Dioxide 24 mmol/L (22.0-30.0); Chloride 106 mmol/L (98-107); Chol/HDL Ratio 3.4 (1-3.5); Cholesterol 164 mg/dl (140-200); Estimated Glomerular Filt Rate 73 ml/min (>60); GFR (African American) 88 ML/MIN (>60); Glucose 104 mg/dl (74-100); HDL Cholesterol 48 mg/dl (40-60); Potassium 4.3 mmoL/L (3.5-5.1); Sodium 139 mmol/L (136-145); Total Protein,Serum 6.9 g/dl (6.3-8.2); Triglycerides 149 mg/dl (30-150); VLDL Cholesterol 30 mg/dL (0-40)
[2024-04-05 17:48] LABS: Direct LDL Cholesterol 85.48 mg/dL (100-129)
[2024-04-05 17:56] LABS: Free T4 (Free Thyroxine) 1.01 ng/dl (0.78-2.19)
== END 2024-04-05 23:59 | disposition home or self-care (01) ==
LOC: LAB 16:04
PROVIDERS: PCP Internal Medicine Adolescent Medicine; Visit Provider Internal Medicine
DX: I25.10 Atherosclerotic heart disease of native coronary artery without angina pectoris (principal); R53.83 Other fatigue; Z95.5 Presence of coronary angioplasty implant and graft; I51.89 Other ill-defined heart diseases; I65.23 Occlusion and stenosis of bilateral carotid arteries; E78.2 Mixed hyperlipidemia; K21.9 Gastro-esophageal reflux disease without esophagitis; R00.1 Bradycardia, unspecified; H93.13 Tinnitus, bilateral; R06.00 Dyspnea, unspecified; E11.9 Type 2 diabetes mellitus without complications; Z79.84 Long term (current) use of oral hypoglycemic drugs
CPT/HCPCS: 36415; 80048; 80061; 80076; 84439; 84443; 85025

== ENCOUNTER 2024-12-01 09:11 | Outpatient (CLI) | payer MEDICARE, SELFPAY ==
--- NOTE | 2024-12-01 09:15 | CT_ITS ---
FINAL REPORT TECHNIQUE: Thin section axial CT images of the facial bones and sinuses were obtained without contrast. Coronal reformatted images were also obtained. This study was performed with techniques to keep radiation doses as low as reasonably achievable, (ALARA). Individualized dose reduction techniques using automated exposure control or adjustment of mA and/or kV according to the patient's size were employed. CLINICAL HISTORY: CHRONIC RHINOSINUSITIS COMPARISON: None FINDINGS: The paranasal sinuses are well aerated. There is no evidence of mucosal thickening. No fluid levels are identified. The ostiomeatal units are patent. The nasal septum is in the midline. No fracture or acute bony abnormality is identified. IMPRESSION: No focal abnormality identified of the sinuses. Reviewed, Interpreted and Dictated by Vinay Gentile MD Transcribed by Kenyetta Grimaldo Authenticated and [facility]
== END 2024-12-01 23:59 | disposition home or self-care (01) ==
LOC: RAD 09:12
PROVIDERS: PCP Nurse Practitioner Family; Visit Provider Nurse Practitioner Family
DX: J32.9 Chronic sinusitis, unspecified (principal)
CPT/HCPCS: 70486

== ENCOUNTER 2025-03-15 07:34 | Day surgery (SDC) | payer MEDICARE, SELFPAY ==
[2025-03-15] VITALS (7 sets, daily range): BP systolic 135–162; BP diastolic 63–95; PULSE 45–80; RESP 16–18; TEMP 36.3–36.6; O2SAT 93–98; BMI 27.8
[2025-03-15] MEDS: CYCLOPENTOLATE 2% OPHTH SOLN 2ML BOTTLE OP ×3 (08:10→08:11)
[2025-03-15] MEDS: PHENYLEPHRINE 2.5% OPHTH SOLN 2ML OP ×3 (08:11→08:12)
[2025-03-15] MEDS: TETRACAINE 0.5% OPTH SOL 15ML OP ×3 (08:11→08:12)
[2025-03-15] MEDS: MIDAZOLAM 2MG/2ML VIAL 1 MG IV (09:05)
[2025-03-15] MEDS: SODIUM CHLORIDE 0.9% 10ML FLUSH SYRINGE 10 ML IV (09:05)
[2025-03-15] MEDS: TIMOLOL 0.5% OPTH SOLN 5ML OP (09:13)
[2025-03-15] MEDS: LIDOCAINE 1% PF 2ML AMPULE 2 ML IJ (09:13)
[2025-03-15] MEDS: TRI-MOXI 15MG/1MG/ML 1ML OPHTH VIAL 1 ML OP (09:14)
== END 2025-03-15 09:42 | disposition home or self-care (01) ==
PROVIDERS: PCP Internal Medicine Adolescent Medicine; Visit Provider Ophthalmology
PROC: (CPT 66982; principal; 2025-03-15 09:00)
DX: H26.20 Unspecified complicated cataract (principal)
CPT/HCPCS: 66982; J2250; V2632

== ENCOUNTER 2025-05-23 14:14 | Outpatient (CLI) | payer MEDICARE, SELFPAY ==
--- OUTSIDE RECORDS SUMMARY | 2025-05-23 14:18 | XMS_ITS | Data Portability ---
Author Organization [facility] YESSEN[facility] [place] [facility] Address [address] [facility] [address] [place] [address] Care Team Providers Care Lathe Puller Name Role Phone ABELARDO BAUTISTA Primary Care Provider ABELARDO BAUTISTA Referring Provider [phone] Assessment No assessment recorded. Plan of Treatment Reminders Order Date Submit Date Provider Last Modified By Organization Details Last Modified Time Details Appointments None recorded. Lab PSA, serum or plasma [address] [facility], [address], [address], [place], [address], 14:40:26 urinalysis panel, auto [address] [facility], [address], [address], [place], [address], 14:40:26 urinalysis panel, auto [address] [facility], [address], [address], [place], [address], 17:24:57 urinalysis, dipstick, auto [address] [facility], [address], [address], [place], [address], 0 14:02:37 PSA, serum or plasma 2019 020 [facility], [address], [address], [place], [address], 0 14:02:37 Referral None recorded. Procedures None recorded. Surgeries None recorded. Imaging None recorded. Medication Orders doxycycline monohydrate 100 mg capsule [email or web address] [place] [address] Pharmacy [facility], [address] [place] [address] [facility], [place], [id number], 1 15:59:44 Patient TargetsNo targets recorded. Patient Instructions Encounter Date Encounter Id Patient Instructions Last Modified By Organization Details Last Modified Time 04/05/2020 [id number] benign prostatic hyperplasia: care instructions [email or web address] Not available 04/05/2020 14:02:37 03/05/2021 [id number] CAPONE candidate AU w/medical clearance LT [email or web address] Not available 03/05/2021 09:18:00 03/05/2021 [id number] 1. Audiogram obtained today- type A tymps bilaterally, 25dbs in the right, 60dbs in the left, Right mild to moderate SNHL, left mild to severe SNHL with poor word discrimination. 2. MRI scan of the brain ordered 3. F/u with MRI Scan results. [email or web address] Not available 03/05/2021 09:22:12 He has history o f new onset hearing loss and tinnitus in his left ear starting at least 6 months ago but he thinks that the hearing loss and tinnitus are gradually worsening. He denies any other associated ear symptoms and denies injury to his left ear or loud noise exposure to his left ear. His head and neck exam is normal except for a deviated septum to the left. Audiometric testing however shows an asymmetric hearing loss in his left ear that is sensorineural and he has an associated poor speech discrimination score of 40% in that left ear. An MRI scan of his head has been scheduled to rule out central pathology like an acoustic neuroma. If his MRI is normal and this is an idiopathic sudden hearing loss in his left ear and he would be a candidate for hearing aid in his left ear. [email or web address] Not available 03/05/2021 09:27:27 03/11/2022 [id number] learning about healthy weight [email or web address] Not available 06/19/2022 14:40:26 Reason for Referral None Reported. Results Created Date Observation Date Name Description Value Unit Range Abnormal Flag Note LastModifiedBy Organization Detail LastModifiedTime 04/05/20 20 04/05/2020 urina lysis , dipst ick, auto Unknown Analyte Yellow Not Available [facility] [address], [place], [address], 04/05/2020 13:48:21 04/05/20 20 04/05/2020 urina lysis , dipst ick, auto Unknown Analyte Clear Not Available [facility] [address], [place], [address], 04/05/2020 13:48:21 04/05/20 20 04/05/2020 urina lysis , dipst ick, auto Unknown Analyte 1.005 Not Available [facility] [address], [address], 04/05/2020 13:48:21 04/05/20 20 04/05/2020 urina lysis , dipst ick, auto Unknown Analyte 1.003 - 1.035 Not Available [facility] [address], [place], [address], 04/05/2020 13:48:21 04/05/20 20 04/05/2020 urina lysis , dipst ick, auto Unknown Analyte 6.5 Not Available [facility] [address], [address], 04/05/2020 13:48:21 04/05/20 20 04/05/2020 urina lysis , dipst ick, auto Unknown Analyte 5.0 - 8.0 Not Available [facility] [address], [place], [address], 04/05/2020 13:48:21 04/05/20 20 04/05/2020 urina lysis , dipst ick, auto Unknown Analyte Negati ve Not Available [facility] [address], [place], [address], 04/05/2020 13:48:21 04/05/20 20 04/05/2020 urina lysis , dipst ick, auto Unknown Analyte Negati ve Not Available [facility] [address], [place], [address], 04/05/2020 13:48:21 04/05/20 20 04/05/2020 urina lysis , dipst ick, auto Unknown Analyte Negati ve Not Available [facility] [address], [place], [address], 04/05/2020 13:48:21 04/05/20 20 04/05/2020 urina lysis , dipst ick, auto Unknown Analyte Negati ve Not Available [facility] [address] [place] [address] [address], [place], [address], 04/05/2020 13:48:21 04/05/20 20 04/05/2020 urina lysis , dipst ick, auto Unknown Analyte Negtiv e Not Available [facility] [address], [place], [address], 04/05/2020 13:48:21 04/05/20 20 04/05/2020 urina lysis , dipst ick, auto Unknown Analyte Negati ve - Trace Not Available [facility] [address], [place], [address], 04/05/2020 13:48:21 04/05/20 20 04/05/2020 urina lysis , dipst ick, auto Unknown Analyte >1000 mg/dl Not Available [facility] [address], [place], [address], 04/05/2020 13:48:21 04/05/20 20 04/05/2020 urina lysis , dipst ick, auto Unknown Analyte Normal Not Available [facility] [address], [place], [address], 04/05/2020 13:48:21 04/05/20 20 04/05/2020 urina lysis , dipst ick, auto Unknown Analyte Negati ve Not Available [facility] [address], [place], [address], 04/05/2020 13:48:21 04/05/20 20 04/05/2020 urina lysis , dipst ick, auto Unknown Analyte Negati ve Not Available [facility] [address], [place], [address], 04/05/2020 13:48:21 04/05/20 20 04/05/2020 urina lysis , dipst ick, auto Unknown Analyte Normal Not Available [facility] [address], [place], [address], 04/05/2020 13:48:21 04/05/20 20 04/05/2020 urina lysis , dipst ick, auto Unknown Analyte Normal - 1mg/dl Not Available [facility] [address], [place], [address], 04/05/2020 13:48:21 04/05/20 20 04/05/2020 urina lysis , dipst ick, auto Unknown Analyte Negati ve Not Available [facility] [address], [place], [address], 04/05/2020 13:48:21 04/05/20 20 04/05/2020 urina lysis , dipst ick, auto Unknown Analyte Negati ve Not Available [facility] [address], [place], [address], 04/05/2020 13:48:21 04/05/20 20 04/05/2020 urina lysis , dipst ick, auto Unknown Analyte Negati ve Not Available [facility] [address], [place], [address], 04/05/2020 13:48:21 04/05/20 20 04/05/2020 urina lysis , dipst ick, auto Unknown Analyte Negati ve Not Available [facility] [address], [place], [address], 04/05/2020 13:48:21 04/05/20 20 04/05/2020 urina lysis , dipst ick, auto Unknown Analyte Clean Catch Not Available [facility] [address], [place], [address], 04/05/2020 13:48:21 04/05/20 20 04/05/2020 urina lysis , dipst ick, auto Unknown Analyte Automa bc Not Available [facility] [address], [place], [address], 04/05/2020 13:48:21 04/05/20 20 04/05/2020 PSA, serum or plasm a PSA 1.1 NG/mL 0.0 - 4.0 Not Available [facility] [address], [place], [address], 04/05/2020 13:49:02 09/11/20 21 09/11/2021 urina lysis panel , auto Unknown Analyte Clean Catch Not Available [facility] [address], [place], [address], 09/11/2021 16:03:06 09/11/20 21 09/11/2021 urina lysis panel , auto Unknown Analyte Yellow Not Available [facility] [address], [place], [address], 09/11/2021 16:03:06 09/11/20 21 09/11/2021 urina lysis panel , auto Unknown Analyte Clear Not Available [facility] [address], [place], [address], 09/11/2021 16:03:06 09/11/20 21 09/11/2021 urina lysis panel , auto Unknown Analyte 1.015 Not Available [facility] [address], [place], [address], 09/11/2021 16:03:06 09/11/20 21 09/11/2021 urina lysis panel , auto Unknown Analyte 1.003- 1.035 Not Available [facility] [address], [place], [address], 09/11/2021 16:03:06 09/11/20 21 09/11/2021 urina lysis panel , auto Unknown Analyte 5.0 Not Available [facility] [address], [place], [address], 09/11/2021 16:03:06 09/11/20 21 09/11/2021 urina lysis panel , auto Unknown Analyte 5.0-8. 0 Not Available [facility] [address], [place], [address], 09/11/2021 16:03:06 09/11/20 21 09/11/2021 urina lysis panel , auto Unknown Analyte Negati ve Not Available [facility] [address], [place], [address], 09/11/2021 16:03:06 09/11/20 21 09/11/2021 urina lysis panel , auto Unknown Analyte Negati ve Not Available [facility] [address], [place], [address], 09/11/2021 16:03:06 09/11/20 21 09/11/2021 urina lysis panel , auto Unknown Analyte Negati ve Not Available [facility] [address], [place], [address], 09/11/2021 16:03:06 09/11/20 21 09/11/2021 urina lysis panel , auto Unknown Analyte Negati ve Not Available [facility] [address], [place], [address], 09/11/2021 16:03:06 09/11/20 21 09/11/2021 urina lysis panel , auto Unknown Analyte Negati ve Not Available [facility] [address], [place], [address], 09/11/2021 16:03:06 09/11/20 21 09/11/2021 urina lysis panel , auto Unknown Analyte Negati ve Not Available [facility] [address], [place], [address], 09/11/2021 16:03:06 09/11/20 21 09/11/2021 urina lysis panel , auto Unknown Analyte >1000 mg/dl Not Available [facility] [address], [place], [address], 09/11/2021 16:03:06 09/11/20 21 09/11/2021 urina lysis panel , auto Unknown Analyte Normal Not Available [facility] [address], [place], [address], 09/11/2021 16:03:06 09/11/20 21 09/11/2021 urina lysis panel , auto Unknown Analyte Negati ve Not Available [facility] [address], [place], [address], 09/11/2021 16:03:06 09/11/20 21 09/11/2021 urina lysis panel , auto Unknown Analyte Negati ve Not Available [facility] [address], [place], [address], 09/11/2021 16:03:06 09/11/20 21 09/11/2021 urina lysis panel , auto Unknown Analyte Normal Not Available [facility] [address], [place], [address], 09/11/2021 16:03:06 09/11/20 21 09/11/2021 urina lysis panel , auto Unknown Analyte Normal 1 mg/dl Not Available [facility] [address], [place], [address], 09/11/2021 16:03:06 09/11/20 21 09/11/2021 urina lysis panel , auto Unknown Analyte Negati ve Not Available [facility] [address], [place], [address], 09/11/2021 16:03:06 09/11/20 21 09/11/2021 urina lysis panel , auto Unknown Analyte Negati ve Not Available [facility] [address], [place], [address], 09/11/2021 16:03:06 09/11/20 21 09/11/2021 urina lysis panel , auto Unknown Analyte Negati ve Not Available [facility] [place] [address], [place], [address], 09/11/2021 16:03:06 09/11/20 21 09/11/2021 urina lysis panel , auto Unknown Analyte Negati ve Not Available [facility] [address], [place], [address], 09/11/2021 16:03:06 03/11/20 22 03/11/2022 PSA, serum or plasm a PSA 1.3 NG/mL 0.0 - 4.0 Not Available [facility] [address], [place], [address], 03/11/2022 16:02:28 03/11/20 22 03/11/2022 urina lysis panel , auto Unknown Analyte Clean Catch Not Available [facility] [address], [place], [address], 03/11/2022 16:08:53 03/11/20 22 03/11/2022 urina lysis panel , auto Unknown Analyte Yellow Not Available [facility] [address], [place], [address], 03/11/2022 16:08:53 03/11/20 22 03/11/2022 urina lysis panel , auto Unknown Analyte Clear Not Available [facility] [address], [place], [address], 03/11/2022 16:08:53 03/11/20 22 03/11/2022 urina lysis panel , auto Unknown Analyte 1.015 Not Available [facility] [address], [place], [address], 03/11/2022 16:08:53 03/11/20 22 03/11/2022 urina lysis panel , auto Unknown Analyte 1.003- 1.035 Not Available [facility] [address], [place], [address], 03/11/2022 16:08:53 03/11/20 22 03/11/2022 urina lysis panel , auto Unknown Analyte 5.0 Not Available [facility] [address], [place], [address], 03/11/2022 16:08:53 03/11/20 22 03/11/2022 urina lysis panel , auto Unknown Analyte 5.0-8. 0 Not Available [facility] [address], [place], [address], 03/11/2022 16:08:53 03/11/20 22 03/11/2022 urina lysis panel , auto Unknown Analyte Negati ve Not Available [facility] [address], [place], [address], 03/11/2022 16:08:53 03/11/20 22 03/11/2022 urina lysis panel , auto Unknown Analyte Negati ve Not Available [facility] [address], [place], [address], 03/11/2022 16:08:53 03/11/20 22 03/11/2022 urina lysis panel , auto Unknown Analyte Negati ve Not Available [facility] [address], [place], [address], 03/11/2022 16:08:53 03/11/20 22 03/11/2022 urina lysis panel , auto Unknown Analyte Negati ve Not Available [facility] [address], [place], [address], 03/11/2022 16:08:53 03/11/20 22 03/11/2022 urina lysis panel , auto Unknown Analyte Negati ve Not Available [facility] [address], [place], [address], 03/11/2022 16:08:53 03/11/20 22 03/11/2022 urina lysis panel , auto Unknown Analyte Negati ve Not Available [facility] [address], [place], [address], 03/11/2022 16:08:53 03/11/20 22 03/11/2022 urina lysis panel , auto Unknown Analyte Normal Not Available [facility] [address], [place], [address], 03/11/2022 16:08:53 03/11/20 22 03/11/2022 urina lysis panel , auto Unknown Analyte Normal Not Available [facility] [address], [place], [address], 03/11/2022 16:08:53 03/11/20 22 03/11/2022 urina lysis panel , auto Unknown Analyte Negati ve Not Available [facility] [address], [place], [address], 03/11/2022 16:08:53 03/11/20 22 03/11/2022 urina lysis panel , auto Unknown Analyte Negati ve Not Available [facility] [address], [place], [address], 03/11/2022 16:08:53 03/11/20 22 03/11/2022 urina lysis panel , auto Unknown Analyte Normal Not Available [facility] [address], [place], [address], 03/11/2022 16:08:53 03/11/20 22 03/11/2022 urina lysis panel , auto Unknown Analyte Normal 1 mg/dl Not Available [facility] [address], [place], [address], 03/11/2022 16:08:53 03/11/20 22 03/11/2022 urina lysis panel , auto Unknown Analyte Negati ve Not Available [facility] [address], [place], [address], 03/11/2022 16:08:53 03/11/20 22 03/11/2022 urina lysis panel , auto Unknown Analyte Negati ve Not Available [facility] [address], [place], [address], 03/11/2022 16:08:53 03/11/20 22 03/11/2022 urina lysis panel , auto Unknown Analyte 50 Mian/ul Not Available [facility] [address], [place], [address], 03/11/2022 16:08:53 03/11/20 22 03/11/2022 urina lysis panel , auto Unknown Analyte Negati ve Not Available [facility] [address], [place], [address], 03/11/2022 16:08:53 03/06/20 21 03/05/2021 audio gram No observ ation record ed. BARCODE Not Available 2020 09:26:42 03/12/20 21 03/09/2021 MR brain and IAC w/wo contr ast [facility] [address] [facility] [place] [address] Patiantolin t Name: UMER stewart : [birth year] Patien t Orderi ng Provid er: XIAO HDZ NO EXAM DATE: 2020 EXAM: MR BRAIN AND IAC W/WO CONTRA ST HISTOR Y: Hearin g loss COMPAR MALIA: None. Diazep am 15 mg p.o. was given for sedati on withou t compli cation . ([facility] [address]-6 1) FINDIN GS: The ventri cles are symmet shi, mildly promin ent. Mild diffus e atroph y. There is no mass, mass effect , or midlin e shift. There is no abnorm al extra- axial fluid, intrac ranial hemorr jonah, or infarc tion. The diffus ion weight ed sequen bandar are normal . There are mild perive ntricu lar white matter change s. After intrav enous admini strati on of [address] ([facility] [address]- 0325-0 2), there is no abnorm al enhanc ement in the brain. There is no mass or abnorm al enhanc ement along the crania l nerves or in the planner intern al audito ry canals . The planner intern al caroti d and basila r flow-v oids are normal . There is minima l mucosa l thicke janelle in the parana michael sinuse s. IMPRES ERICKA: 1. Mild chroni c change s includ ing atroph y and chroni c deep white matter microa ngiopa thic diseas e sequel a Interp reted By: Sohail Hood MD Electr onical ly Signed By: Sohail Hood MD on 021 8:08 AM [facility] Radiology [facility] [address] [place], [address], 03/12/2021 08:48:56 Result Notes None recorded. Problems No Known Problems Procedures Surgical History Date Name Laterality Status Provider Name and Address Organization Details Recorded Time 1 Post Void Residual; Ultrasound completed Bethany Parra [facility] 09/11/2021 16:03:00 1 Tympanogram completed STEPHAN DEVINECHANDRA , [facility] [address] [place], [address], [facility] 03/05/2021 09:10:57 1 [facility], [address], [facility] 03/05/2021 09:17:41 9 placement of stent in pulmonary artery completed Gwen Low [facility] 03/05/2021 08:39:29 7 Post Void Residual; Ultrasound completed Marie Méndez [facility] 04/14/2017 12:03:26 Imaging Results None recorded. Procedure Notes None recorded. Medical Equipment None Reported. Allergies No known drug allergies Medications Name Sig Start Date Stop Date Status Note LastModified by Organization Details LastModified Time losartan 50 mg tablet Take 1 tablet every day by oral route. active Not Available Not Available No t Available atorvastat in 40 mg tablet Take 1 tablet every day by oral route. 09/11 completed Not Available Not Available Not Available Claritin 10 mg tablet Take 1 tablet every day by oral route. active Not Available Not Available No t Available prednisone 20 mg tablet Two times a day 05/12 completed Frequen cy: bid;Med ication Descrip tion: prednis one; Dosage: 1; Route:o ral; refills :0 Not Available Not Available Not Available bisoprolol 5 mg-hydroch lorothiazi de 6.25 mg tablet Take 1 tablet every day by oral route. active Not Available Not Available No t Available spironolac tone 25 mg tablet Take 1 tablet every day by oral route. 09/11 completed Not Available Not Available Not Available famotidine 20 mg tablet Take 1 tablet twice a day by oral route. active Not Available Not Available No t Available amitriptyl ine 25 mg tablet Daily 09/11 completed Frequen cy: daily;M edicati on Descrip tion: amitrip tyline; Dosage: 1; Route:o ral; refills :0 Not Available Not Available Not Available tamsulosin 0.4 mg capsule TAKE 1 CAPSULE BY MOUTH ONCE DAILY 2020 active Not Available Not Available Not Avai lable doxycyclin e monohydrat e 100 mg capsule Take 1 capsule twice a day by oral route for 30 days. 09/11 completed Not Available Not Available Not Available ropinirole 0.5 mg tablet Take 1 tablet 3 times a day by oral route. active Not Available Not Available No t Available losartan 25 mg tablet Take 1 tablet every day by oral route. 09/11 completed Not Available Not Available Not Available omeprazole 20 mg capsule,de layed release Take 1 capsule every day by oral route. active Not Available Not Available No t Available allopurino l 300 mg tablet Daily 05/12 completed Duratio n: 30 days;Fr equency : daily;M edicati on Descrip tion: allopur inol; Dosage: 1/2; Route:o ral; refills :0; Quantit y:30 tablet Not Available Not Available Not Available mirtazapin e 15 mg disintegra ting tablet Place 1 tablet every day by translin gual route. active Not Available Not Available No t Available doxycyclin e hyclate 100 mg tablet Take 1 tablet twice a day by oral route for 14 days. 04/05 completed Not Available Not Available Not Available diazepam 5 mg tablet Take 1 tablet as needed by oral route. 09/11 completed ND: 0904-58 80-61 Not Available Not Available Not Available nabumetone 500 mg tablet Take 1 tablet twice a day by oral route. 05/12 completed Not Available Not Available Not Available Flexeril 5 mg tablet Three times a day 09/11 completed Frequen cy: tid;Med ication Descrip tion: cyclobe nzaprin e; Dosage: 1; Route:o ral; refills :0 Not Available Not Available Not Available rosuvastat in 20 mg tablet Take 1 tablet every day by oral route. active Not Available Not Available No t Available Vitamin C active Not Available Not Margareth ilable Not Available Vitamin B-12 active Not Available Not Available Not Available aspirin active Not Available Not Avail able Not Available Centrum Silver active Not Available Not Available Not Available Vitamin D3 active Not Available Not Av ailable Not Available CoQ10 active Not Available Not Availa ble Not Available Probiotic active Not Available Not Margareth ilable Not Available Invokana 100 mg tablet Take 1 tablet every day by oral route. active Not Available Not Available No t Available Vitals Date Recorded Body height Body mass index (BMI) Body weight Body temperature Oxygen saturation Oxygen saturation in Arterial blood by Pulse oximetry Heart rate Systolic And Diastolic Provider Name and Address Organization Details Last Updated DateTime 175.26 cm 30.6 kg/m2 81983.6 2 g 97.8 [degF] 96 % 96 % 54 /min 159/76 mm[Hg] Gwen Low [facility] 1 08:43:09 Date Recorded Body height Body mass index (BMI) Body weight Provider Name and Address Organization Details Last Updated DateTime 03/11/2022 175.26 cm 31.7 kg/m2 06239.36 g Anh Chirinos [facility] 03/11/2022 16:02:03 Date Recorded Body height Body mass index (BMI) Body weight Provider Name and Address Organization Details Last Updated DateTime 04/05/2020 175.26 cm 34 kg/m2 539416.25 g Mechelle Redmond [facility] 04/05/2020 13:47:17 Date Recorded Body height Body mass index (BMI) Body weight Provider Name and Address Organization Details Last Updated DateTime 09/11/2021 175.26 cm 30.6 kg/m2 93283.62 g Bethany Fidel [facility] 09/11/2021 15:59:03 Social History Question Answer Notes LastModified by Organizat ion Details LastModified Time Tobacco Smoking Status Never Smoker Candis Castillo [facility] 04/14/2017 11:31:16 How Much Tobacco Do You Chew? None [email or web address] Information not available 04/05/2020 Has Tobacco Cessation Counseling Been Provided? No [email or web address] Information not available 03/11/2022 Have You Recently Traveled Abroad? No [email or web address] Information not available 03/11/2022 Sex: Unknown Functional Status Question Answer Note LastModified by Organizat ion Details LastModified Time Do you use any illicit or recreational drugs? No [email or web address] Information not available 03/11/2022 Do you or have you ever used any other forms of tobacco or nicotine? No [email or web address] Information not available 03/11/2022 What is your level of alcohol consumption? None [email or web address] Information not available 04/14/2017 Mental Status None recorded. Family History Relationship Description Onset Age of this Age Resolved Age Notes LastModified by Organization Details LastModified Time Unspecified Relation Family history of malignant neoplasm [email or web address] Not available 03/05 08:37:13 Mother Hypertensive disorder [email or web address] Not available 03/05 08:37:23 Mother Diabetes mellitus [email or web address] Not available 03/05 08:37:38 Medical History Condition Response Depression Y Stroke Y High Cholesterol Y Hypertension Y Past Encounters Encounter ID Performer Location Encounter Start Date Encounter Closed Date Diagnosis/Indication Diagnosis SNOMED-CT Code Diagnosis ICD10 Code Diagnosis Note [id number] MD YANIV DUNN [facility] [address] [place] [id number] 04/14/2017 11:07:30 04/14/2017 12:34:21 Chronic prostatitis 95756304 N41.1 we will treat him with doxycyclin e and Relafen. He will follow up in 3-4 weeks. [id number] MD YANIV DUNN [facility] [address] [address] 05/12/2017 11:00:39 05/12/2017 14:13:04 Chronic prostatitis 73898738 N41.1 plan as above follow-up [place] 6 weeks [id number] MD YANIV DUNN [facility] [address] [place] [address] 04/05/2020 13:16:18 04/05/2020 13:57:27 Chronic prostatitis 45057899 N41.1 follow-up 6 months Benign pro static hyperplasia 867684877 N40.1 follow-up 6 months [id number] BHAVANA GIANG MD [facility] [address] [address] [place] [address] 03/05/2021 08:16:00 03/05/2021 09:25:16 Tinnitus of left ear 9768091182 106 H93.12 Ear pressu re sensation 614238319 H93.8X2 Allergic rhinitis 213685 04 J30.9 Deviated nasal septum 12 0255590 J34.2 Asymmetric al sensorineural hearing loss 795588351 H90.3 [id number] DEYANIRA WONG [facility] [address] [place] [address] 03/05/2021 08:55:43 03/05/2021 09:18:22 Sensorineural hearing loss of bilateral ears 343560571 H90.3 Bilateral tinnitus 64422 74573 102 H93.13 [id number] MD YANIV DUNN [facility] [address] [place] [id number] 09/11/2021 15:23:43 09/11/2021 16:22:46 Benign prostatic hyperplasia with outflow obstruction 476179537 N40.1 continue tamsulosin follow-up 6 months with PSA [id number] MD YANIV DUNN [facility] [address] [place] [id number] 03/11/2022 15:27:58 03/11/2022 16:20:13 Chronic prostatitis 24568293 N41.1 follow-up 6 months Health Concerns Section Related Observation LastModified by Organization Detai ls LastModified Time None Recorded Concern Status LastModified by Organization Details LastModified Time None Recorded Advance Directives Directive None Recorded Payers Insurance Date Sequence Insurance Name Policy Number Policy Rosales Covered Member ID Rosales Member ID Guarantor Name 06/20/2022 1 [employer] (MEDICARE REPLACEMENT/AD VANTAGE - PPO) Umre Spann Twan [id number] Umer Spann Twan 03/15/2021 1 [employer] - CHOICECARE (PPO) Umer Spann Twan [id number] Umer Spann Twan 09/17/2022 [employer] (MEDICARE REPLACEMENT/AD VANTAGE - PPO) Umer Spann Twan [id number] Umer Trent Notes Date Note Type Note Provider Name and Address Organization Details Recorded Time 04/05/2020 text/html patient is here for scheduled 6 month follow-up. He was last seen in October at [facility]. Most recently was treated prostatitis with doxycycline. I have very prompt response with no significant side effects. He is symptom free today. He was recently started on medical therapy for type 2 diabetes. He is scheduled for a stress test later this week. PSA today was 1.1. He has no prostatitis symptoms at this time. ARAM RUSSELL MD [address] [place] [address], [phone], [facility] 04/05/2020 14:03:11 03/05/2021 text/html Umer comes in today for consultation at the request of Dr. Abelardo Bautista for evaluation of left sided tinnitus. The left ear is of concern. He noticed the left sided tinnitus 6 months ago. This has been a gradual process for him. About a month ago, he noticed an increase in tinnitus with a whooshing sound along with ear pressure. His PCP thought he may have allergy symptom contributing to his ear symptoms. He is taking Claritin and using Flonase Nasal [place]. He also notices an increase in hearing loss in the left ear. He has not injured the ear in any way. He used to shoot firearms, but hasn't for several years. Sneezing in the morning followed by nasal drainage and watery eyes tend to occur during the morning hours. Umer has never had a history of allergies. BHAVNAA GIANG MD [address] [place] [address], [phone], [facility] 03/05/2021 09:27:40 09/11/2021 text/html patient is here originally scheduled last week. At that time he was having some suprapubic discomfort more toward the left side. He has previous history of stones as well as chronic prostatitis. He was concerned they might have a stone. Ironically is pain has completely resolved. He had a PSA in April of .1. His urine today is unremarkable. His has nocturia 1. He continues to take tamsulosin once daily. Because of his previous symptoms are unknown but currently is symptom free. I recommend no further evaluation is time. I see no recent CT scan. MD [place], [phone], [facility] 09/11/2021 17:25:31 03/11/2022 text/html patient is here in follow-up of previous obstructive symptoms with prostatitis. Fortunately has had no recent exacerbations. He was last seen here in September. He also has history of stones. He takes tamsulosin once per day his PSA was 1.1 in April 2021. his PSA today is 1.3 [place], [phone], [facility] 06/19/2022 14:41:47
--- OUTSIDE RECORDS SUMMARY | 2025-05-23 14:18 | XMS_ITS | Clinical Summary ---
Author Organization [employer] ([place], [place], [place], [place]) Address [address] [place] [address] Care Team Providers Care Draw Machine Operator Name Role Phone Unavailable Primary Care Provider Unavailabl e Allergies No known active allergies Social History Tobacco Use Types Packs/Day Years Used Date Smoking Tobacco: Never Assessed Sex and Gender Information Value Date Recorded Sex Assigned at Not on file Legal Sex Male 4:30 PM CDT Gender Identity Not on file Sexual Orientation Not on file Plan of Treatment Not on file Insurance [employer] MEDICARE PPO
--- OUTSIDE RECORDS SUMMARY | 2025-05-23 14:18 | XMS_ITS | Clinical Summary ---
Author Organization [facility] Address [address] [place] [address] Care Team Providers Care Tool Machine Shop Supervisor Name Role Phone Abelardo Alford MD Primary Care Provider [phone] Social History Tobacco Use Types Packs/Day Years Used Date Smoking Tobacco: Never Assessed Sex and Gender Information Value Date Recorded Sex Assigned at Not on file Legal Sex Male 8:23 PM EDT Gender Identity Not on file Sexual Orientation Not on file Plan of Treatment Health Maintenance Due Date Last Done Comments [facility]-Depression Screening 1950 [facility]-Hepatitis C Screening 1950 [facility]-Medicare Annual Wellness (AWV) 1950 [facility]-Infant/Child/Adol SDOH Screenings 1950 [facility]- SDOH Screenings 1966 [facility]-Adult SDOH Screenings 1966 [facility]-DTaP,Tdap,and Td Vaccines (1 - Tdap) 1967 [facility]-Zoster Vaccines (2 of 3) 12/10/2017 10/15/2017 [facility]-RSV Vaccine: 60+ Years or (1 - 1-dose 75+ series) 2023 [id number] Vaccine ( season) 2024 08/31/2021, 12/15/2020, 11/15/2020 [facility]-Influenza Vaccine (#1) 07/04/202507/24, 07/09/2017, 07/01/2016 [facility]-Pneumococcal Vaccine: 50+ Years Completed 09/08/2017, 07/01/2016 HPV Vaccines Aged Out No longer eligi ble based on patient's age to complete this topic [facility]-HIB Vaccines Aged Out No longer e ligible based on patient's age to complete this topic [facility]-Hepatitis A Vaccines Aged Out No longer eligible based on patient's age to complete this topic [facility]-IPV Vaccines Aged Out No longer e ligible based on patient's age to complete this topic [facility]-Rotavirus Vaccines Aged Out No lo nger eligible based on patient's age to complete this topic Insurance [employer] MEDICARE Care Teams Tool Machine Shop Supervisor Relationship Specialty Start Date End Date Abelardo Alford MD [address] [place] [id number] PCP - General 03/16/21
--- OUTSIDE RECORDS SUMMARY | 2025-05-23 14:18 | XMS_ITS | Referral Summary ---
Author Organization [employer] ([place], [place], [place], [place]) Address [address] [place] [address] Care Team Providers Care Bark Scaler Name Role Phone Unavailable Primary Care Provider [...]
--- NOTE | 2025-05-23 14:30 | US_ITS ---
FINAL REPORT CLINICAL HISTORY: Decreased Pedal Pulses,DM.HTN,CLAUDICATION,REST PAIN,HLD FINDINGS: LOWER EXTREMITY SEGMENTAL PRESSURE MEASUREMENTS FINDINGS: Pressure indices are as follows: RIGHT LOWER EXTREMITY: Thigh: 1.34 Calf: 1.47 Ankle, posterior tibial artery: 1.43 Ankle, dorsalis pedis: 1.22 Toe: 1.07 KATHERINE: 1.43 Comments: Normal LEFT LOWER EXTREMITY: Thigh: 1.23 Calf: 1.33 Ankle, posterior tibial artery: 1.42 Ankle, dorsalis pedis: 1.24 Toe: 1.00 KATHERINE: 1.42 Comments: Normal IMPRESSION: No evidence of significant peripheral vascular disease. Reviewed, Interpreted and Dictated by Keri Lenz MD Transcribed by Caridad Laguerre Authenticated and [facility]
[2025-05-23 15:16] LABS: Hematocrit 46.6 % (42.0-52.0); Hemoglobin 15.5 g/dL (14.1-18.0); Immature Granulocytes % 0.6 %; Mean Corpuscular HGB Conc 33.3 g/dL (31.8-35.4); Mean Corpuscular Hemoglobin 31.2 pg (27.0-31.2); Mean Corpuscular Volume 93.8 fl (80-94); Nucleated Red Blood Cells % 0 %; Platelet Count 207 K/mm3 (142-424); Red Blood Count 4.97 M/mm3 (4.60-6.20); Red Cell Distribution Width-SD 46.5 fL; White Blood Count 9.6 K/mm3 (4.8-10.8)
[2025-05-23 15:39] LABS: Albumin Level 4.2 g/dl (3.5-5.0); Chloride 105 mmol/L (98-107); Potassium 4.3 mmoL/L (3.5-5.1); Sodium 136 mmol/L (136-145)
[2025-05-23 15:41] LABS: Anion Gap 11.3 mEq/L (5-15); Bilirubin,Unconjugated 0.2 mg/dL (0.0-1.1); Blood Urea Nitrogen 14 mg/dl (9-20); Carbon Dioxide 24 mmol/L (22.0-30.0); Creatinine,Serum 0.80 mg/dl (0.66-1.25); Estimated Glomerular Filt Rate 94 ml/min (>60); GFR (African American) 114 ML/MIN (>60)
[2025-05-23 15:42] LABS: Alanine Aminotransferase 25 U/L (12-78); Alkaline Phosphatase 147 U/L (38-126); Aspartate Amino Transferase 30 U/L (17-59); Bilirubin,Direct 0.5 mg/dl (0.0-0.4); Bilirubin,Indirect 0.2 mg/dL (0.0-0.9); Bilirubin,Total 0.7 mg/dl (0.2-1.3); Calcium 9.1 mg/dl (8.4-10.2); Cholesterol 154 mg/dl (140-200); Glucose 107 mg/dl (74-100); HDL Cholesterol 45 mg/dl (40-60); Magnesium 2.2 mg/dl (1.6-2.3); Total Protein,Serum 7.2 g/dl (6.3-8.2); Triglycerides 141 mg/dl (30-150)
[2025-05-23 15:57] LABS: Free T4 (Free Thyroxine) 0.99 ng/dl (0.78-2.19)
[2025-05-23 16:12] LABS: Thyroid Stimulating Hormone 2.45 uIU/mL (0.465-4.68)
== END 2025-05-23 23:59 | disposition home or self-care (01) ==
LOC: RT 14:14
PROVIDERS: Physician Assistant; PCP Internal Medicine Adolescent Medicine; Visit Provider Podiatrist
DX: E11.69 Type 2 diabetes mellitus with other specified complication (principal); I25.10 Atherosclerotic heart disease of native coronary artery without angina pectoris; I11.9 Hypertensive heart disease without heart failure; I73.9 Peripheral vascular disease, unspecified; M79.606 Pain in leg, unspecified; E78.5 Hyperlipidemia, unspecified; R09.89 Other specified symptoms and signs involving the circulatory and respiratory systems
CPT/HCPCS: 36415; 80048; 80061; 80076; 83735; 84439; 84443; 85025; 93923

== ENCOUNTER 2025-10-17 14:22 | Outpatient (CLI) | payer MEDICARE, SELFPAY ==
[2025-10-17 14:54] LABS: Hematocrit 49.5 % (42.0-52.0); Hemoglobin 15.9 g/dL (14.1-18.0); Immature Granulocytes % 0.5 %; Mean Corpuscular HGB Conc 32.1 g/dL (31.8-35.4); Mean Corpuscular Hemoglobin 30.5 pg (27.0-31.2); Mean Corpuscular Volume 95.0 fl (80-94); Nucleated Red Blood Cells % 0 %; Platelet Count 227 K/mm3 (142-424); Red Blood Count 5.21 M/mm3 (4.60-6.20); Red Cell Distribution Width-SD 47.8 fL; White Blood Count 11.1 K/mm3 (4.8-10.8)
[2025-10-17 15:35] LABS: Alanine Aminotransferase 37 U/L (12-78); Albumin Level 4.4 g/dl (3.5-5.0); Alkaline Phosphatase 164 U/L (38-126); Anion Gap 13.4 mEq/L (5-15); Aspartate Amino Transferase 40 U/L (17-59); Bilirubin,Direct 0.4 mg/dl (0.0-0.4); Bilirubin,Indirect 0.5 mg/dL (0.0-0.9); Bilirubin,Total 0.9 mg/dl (0.2-1.3); Bilirubin,Unconjugated 0.5 mg/dL (0.0-1.1); Blood Urea Nitrogen 25 mg/dl (9-20); Calcium 9.6 mg/dl (8.4-10.2); Carbon Dioxide 24 mmol/L (22.0-30.0); Chloride 107 mmol/L (98-107); Cholesterol 142 mg/dl (140-200); Creatinine,Serum 1.10 mg/dl (0.66-1.25); Estimated Glomerular Filt Rate 65 ml/min (>60); GFR (African American) 79 ML/MIN (>60); Glucose 103 mg/dl (74-100); HDL Cholesterol 37 mg/dl (40-60); Magnesium 2.3 mg/dl (1.6-2.3); Potassium 4.4 mmoL/L (3.5-5.1); Sodium 140 mmol/L (136-145); Total Protein,Serum 7.6 g/dl (6.3-8.2); Triglycerides 215 mg/dl (30-150)
[2025-10-17 15:51] LABS: Free T4 (Free Thyroxine) 0.99 ng/dl (0.78-2.19)
[2025-10-17 16:06] LABS: Thyroid Stimulating Hormone 2.69 uIU/mL (0.465-4.68)
== END 2025-10-17 23:59 | disposition home or self-care (01) ==
LOC: LAB 14:22
PROVIDERS: PCP Internal Medicine Adolescent Medicine; Visit Provider Physician Assistant
DX: I25.10 Atherosclerotic heart disease of native coronary artery without angina pectoris (principal); E78.2 Mixed hyperlipidemia; I11.9 Hypertensive heart disease without heart failure
CPT/HCPCS: 36415; 80048; 80061; 80076; 83735; 84439; 84443; 85025